=== PATIENT | female | born 1945 | race Caucasian/White ===

== ENCOUNTER 2024-07-23 10:24 | Outpatient (AMB) | payer OTHER, SELFPAY ==
--- NOTE | 2024-07-23 08:06 | A.OFFVIS_ITS ---
Vital Signs 07/23/24 10:34 Height 4 ft 0.75 in Weight 121 lb 6 oz BMI 35.9 BP 118/64 Blood Pressure Location Lt brachial Position Sitting Pulse 77 Pulse Source Pulse Oximeter Pulse Oximetry (%) 100 Oxygen Delivery Method Room Air Intake Visit Reasons: Joint Pain Intake Note: Patient presents for soft tissue pain in hands, knees and shoulders. Allergies cephalexin [From Keflex] Allergy (Unknown, Unverified 07/23/24 08:12) Unknown clonazepam [From Klonopin] Allergy (Unknown, Unverified 07/23/24 08:12) Unknown ampicillin [From Unasyn] Adverse Reaction (Unknown, Unverified 07/23/24 08:12) Unknown NSAIDS (Non-Steroidal Anti-Inflamma Adverse Reaction (Unknown, Unverified 07/23/24 10:37) Anaphylaxis sulbactam [From Unasyn] Adverse Reaction (Unknown, Unverified 07/23/24 08:12) Unknown HPI HPI Joint Pain: Details: In January 2024 she was unable to get out of bed. SHe had pain in shoulders, hands and was unable to bend knees. Sudden onset. She has a rash on her cheeks since onset of joint symptoms. It is worse at time. SHe continues to have stiffness in hands lasting all days. Hard to make a fist. He cannot open jars. Has a hard time getting up from seated position. She recieved prednisone 50mg qd for 5 days Jun [id number] from urgent care. She had immediate benefit with prednisone and continues to have benefit. She has pain in hips and has difficulty sleeping. Hard to rotate left wrist in the morning when she wakes up. Raynauds' syndrome affects her fingers with hands and feet with onset of Joint symptoms 01/2024. Denies fevers, pleurisy, dyspnea, oral ulers, weight loss, dysuria, hematuria, frothy urine. Hx of urianry incontinence and urinary urgency. Hx of anaphyalaxis from aleve. Avoids NSAIDs. NO benefit with tylenol. She seeked medical attention. Workup in March 2024 revealed elevated inflammatory markers and negative NOMAN. 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 Never smoked. Occasionally has alcohol a glass of wine a week. [facility] Family History (Updated 07/23/24 @ 08:15 by Rin Gomez CMA) Father COPD (chronic obstructive pulmonary disease) Asthma Mother COPD (chronic obstructive pulmonary disease) Stroke Rheumatoid arthritis Social History (Updated 07/23/24 @ 08:16 by Rin Gomez CMA) Comment: no more than 3 a week, but often does not drink Patient Tobacco Use Status: Never used Tobacco Review of Systems Const All systems reviewed & are unremarkable except as noted in HPI and below Physical Exam Vital Signs: Last Vital Signs Pulse 77 07/23/24 10:34 BP 118/64 07/23/24 10:34 Pulse Ox 100 07/23/24 10:34 Oxygen Delivery Method Room Air 07/23/24 10:34 BMI result Body Mass Index 35.9 Const Other: General: Comfortable CVS: RRR Respiratory: clear to auscultation bilaterally. Good respiratory effort Skin: Erythematous spots on cheeks. MSK: Synovitis bilateral 2nd and 3rd MCP with tenderness on palpation. She has synovitis of right 5th PIP without tenderness. Tender left 2nd to 4th PIPs. S light ulnar deviation of bilateral MCPs. [place]berden nodes present. Unable to weld technician hands. She has Dupuytren's contractures left hand. Shoulder abduction 120 degrees right and 110 left. Good internal external rotation of bilateral shoulders. External rotation of bilateral hips is limited due to pain. She has synovitis of bilateral knees. Knee flexion 110 degrees bilaterally. Right ankle mild synovitis present. Bilateral MTP tenderness. Assessment & Plan Assessment & Plan (1) Rheumatoid arthritis: Comment: Clinical history and exam is consistent with inflammatory arthritis with Raynaud's syndrome. She is at risk for development of RA with family history of RA (mother and sister). She presents as PMR mimic in 02/18/2024, which is an atypical presentation of RA and has developed synovitis affecting her hands and knees. We discussed diagnosis and management. She has history of osteoporosis on bone density that she had done in 2021 but reports that she was never offered treatment. I discussed treating initial symptoms with low-dose prednisone with plan to taper when she started on DMARD therapy. She has erythema on her cheeks presenting as erythematous spots. They do not represent typical malar rash. Code(s): M06.9 - Rheumatoid arthritis, unspecified Category: Medical Qualifiers: Rheumatoid arthritis location: multiple sites Rheumatoid factor presence: unspecified presence Qualified Code(s): M06.9 - Rheumatoid arthritis, unspecified Plan: Baseline labs and x-rays ordered Start prednisone 10 mg daily I recommend that she contact PCP to schedule bone density Return to clinic in 2 weeks to review results and next steps in management (2) Osteoporosis: Comment: Without fragility fracture. Treatment naive. Code(s): M81.0 - Age-related osteoporosis without current pathological fracture Category: Medical Qualifiers: Osteoporosis type: age-related Presence of current pathological fracture: without current pathological fracture Qualified Code(s): M81.0 - Age- related osteoporosis without current pathological fracture Plan: I recommend contacting PCP to schedule bone density (3) Raynaud disease without gangrene: Code(s): I73.00 - Raynaud's syndrome without gangrene Category: Medical Plan: Conservatively managed Orders: Orders Cyclic Citrullinated Peptide Today M06.9 - Rheumatoid arthritis, unspecified T Spot TB Today M06.9 - Rheumatoid arthritis, unspecified Creatinine Today M06.9 - Rheumatoid arthritis, unspecified Complete Blood Count Auto Diff Today M06.9 - Rheumatoid arthritis, unspecified Alanine Aminotransferase Today M06.9 - Rheumatoid arthritis, unspecified XR foot LT min 3V Today M06.9 - Rheumatoid arthritis, unspecified XR hand LT min 3V Today M06.9 - Rheumatoid arthritis, unspecified XR hand RT min 3V Today M06.9 - Rheumatoid arthritis, unspecified XR knee RT 2V Today M06.9 - Rheumatoid arthritis, unspecified Rheumatoid Factor Today M06.9 - Rheumatoid arthritis, unspecified Hepatitis B,C Profile Today M06.9 - Rheumatoid arthritis, unspecified Erythrocyte Sedimentation Rate Today M06.9 - Rheumatoid arthritis, unspecified C Reactive Protein Today M06.9 - Rheumatoid arthritis, unspecified Aspartate Amino Transferase Today M06.9 - Rheumatoid arthritis, unspecified XR foot RT min 3V Today M06.9 - Rheumatoid arthritis, unspecified XR knee LT 2V Today M06.9 - Rheumatoid arthritis, unspecified Vitamin D 25-OH Total Today M81.0 - Age-related osteoporosis without current pathological fracture Calcium Today M81.0 - Age-related osteoporosis without current pathological fracture Albumin Level Today M06.9 - Rheumatoid arthritis, unspecified, M81.0 - Age- related osteoporosis without current pathological fracture Medications: New prednisone 10 mg PO DAILY 30 tabs 0RF Coding Level of Care Code New Pt Level 4 (54956) Diagnoses Rheumatoid arthritis involving multiple sites, unspecified whether rheumatoid factor present M06.9 Rheumatoid arthritis location: multiple sites Rheumatoid factor presence: unspecified presence Age-related osteoporosis without current pathological fracture M81.0 Osteoporosis type: age-related Presence of current pathological fracture: without current pathological fracture Raynaud disease without gangrene I73.00
[2024-07-23 10:34] VITALS: BP 118/64; PULSE 77; O2SAT 100; BMI 35.9
== END 2024-07-23 11:58 | disposition home or self-care (01) ==
PROVIDERS: PCP Internal Medicine; Visit Provider Internal Medicine Rheumatology
DX: M06.9 Rheumatoid arthritis, unspecified (principal); M81.0 Age-related osteoporosis without current pathological fracture; I73.00 Raynaud's syndrome without gangrene
CPT/HCPCS: 99204

== ENCOUNTER 2024-07-23 10:24 | Outpatient (REF) | payer OTHER, SELFPAY ==
[2024-07-23 17:50] LABS: MANUAL DIFF FLAG NO
[2024-07-23 17:55] LABS: Basophils Absolute Auto 0.1 X10*3/uL (0.0-0.2); Eosinophils Absolute Auto 0.2 X10*3/uL (0.0-0.4); Eosinophils Percent Auto 3.7 % (0-4); Hematocrit 41.8 % (37.0-47.0); Hemoglobin 13.5 g/dl (12.0-16.0); Imm Gran Abs Auto 0.02 X10*3/uL (0.00-0.03); Imm Gran Pct Auto 0.3 % (0.0-0.4); Lymphocytes Absolute Auto 1.8 X10*3/uL (1.2-4.9); Lymphocytes Percent Auto 29.4 % (20-40); Mean Corpuscular HGB Conc 32.3 g/dl (31.0-35.0); Mean Corpuscular Hemoglobin 28.1 pg (27.0-33.0); Mean Corpuscular Volume 86.9 fL (80.0-98.0); Mean Platelet Volume 9.5 fL (9.4-12.3); Monocytes Absolute Auto 0.5 X10*3/uL (0.1-1.2); Monocytes Percent Auto 7.9 % (2-11); Neutrophils Absolute Auto 3.4 x10*3/uL (2.0-8.3); Neutrophils Percent Auto 57.7 % (45-73); Platelet Count 336 X10*3/uL (160-400); Red Blood Count 4.81 X10*6/uL (4.20-5.50)
[2024-07-23 18:06] LABS: Rheumatoid Factor < 13.0 IU/mL (<15.0)
[2024-07-23 18:15] LABS: Alanine Aminotransferase 15 U/L (0-31); Albumin Level 4.1 g/dL (3.5-5.0); Aspartate Amino Transferase 26 U/L (5-31); C Reactive Protein 0.69 mg/dL (< or = 0.50); Calcium 10.3 mg/dL (8.4-10.2); Estimated Glomerular Filt Rate > 60
[2024-07-23 18:31] LABS: Vitamin D 25-OH Total 64.7 ng/mL (>30)
[2024-07-23 18:39] LABS: Erythrocyte Sedimentation Rate 18 MM/HR (0-20)
[2024-07-24 08:12] LABS: HBS Num1 13.68 mIU/mL (0-7.99); HBc Num1 0.14 S/CO (0.00-0.79); HBsAGNum1 0.32 S/CO (0.00-0.99); Hepatitis B Core Antibody Nonreactive (Nonreactive); Hepatitis B Surface Antigen Negative (Negative); ~HepC Num1 0.18 S/CO (0.00-0.79); ~Hepatitis B Surface Antibody REACTIVE (Nonreactive); ~Hepatitis C Antibody Nonreactive (Nonreactive)
[2024-07-26 21:42] LABS: TS Negative Control Passed; TS Panel A 0; TS Panel B 0; TS Positive Control Passed; TSpotTB Negative (Negative)
[2024-07-27 14:39] LABS: Cyclic Citrullinated Peptide <16 UNITS
== END 2024-07-23 10:25 | disposition home or self-care (01) ==
LOC: HO.HKASLDS 10:24
PROVIDERS: PCP Internal Medicine; Visit Provider Internal Medicine Rheumatology
DX: M06.9 Rheumatoid arthritis, unspecified (principal); M81.0 Age-related osteoporosis without current pathological fracture
CPT/HCPCS: 36415; 82040; 82306; 82310; 82565; 84450; 84460; 85025; 85652; 86140; 86200; 86431; 86481; 86704; 86706; 86803; 87340

== ENCOUNTER 2024-07-27 12:57 | Outpatient (REF) | payer MEDICARE, SELFPAY ==
--- NOTE | ~2024-07-27 | XR_ITS ---
EXAMINATION: XR HAND 3 OR MORE VIEWS LEFT HISTORY: M06.9 - Rheumatoid arthritis, unspecified COMPARISON: There are no prior studies available for comparison. FINDINGS: Three views of the left hand are submitted. The bones are osteopenic. There is no fracture or dislocation. There is mild to moderate osteoarthritis of the 1st carpometacarpal joint with joint space narrowing and osteophyte formation. The remaining joint spaces are maintained. The soft tissues are unremarkable. XR/XR hand LT min 3V IMPRESSION: Osteopenia. Mild to moderate osteoarthritis of the 1st carpometacarpal joint. Electronically signed by: Mich Yap MD 07/27/2024 03:38 PM [facility]
--- NOTE | ~2024-07-27 | XR_ITS ---
EXAMINATION: XR HAND 3 OR MORE VIEWS RIGHT HISTORY: M06.9 - Rheumatoid arthritis, unspecified COMPARISON: There are no prior studies available for comparison. FINDINGS: Three views of the right hand are submitted. The bones are osteopenic. There is no fracture or dislocation. There is moderate osteoarthritis of the 1st carpometacarpal joint and the joint space between the scaphoid and trapezium. No erosions are seen. The soft tissues are unremarkable. XR/XR hand RT min 3V IMPRESSION: Osteopenia. Osteoarthritis of the radial aspect of the carpus as described. Electronically signed by: Mich Yap MD 07/27/2024 03:37 PM [facility]
--- NOTE | ~2024-07-27 | XR_ITS ---
EXAMINATION: XR FOOT 3 OR MORE VIEWS RIGHT HISTORY: M06.9 - Rheumatoid arthritis, unspecified COMPARISON: There are no prior studies available for comparison. FINDINGS: Three views of the right foot are submitted. The bones are osteopenic. There is no fracture or dislocation. There is mild narrowing and hallux valgus deformity of the MTP joint of the great toe. The soft tissues are unremarkable. XR/XR foot RT min 3V IMPRESSION: Osteopenia. Mild narrowing and hallux valgus deformity of the MTP joint of the great toe. Electronically signed by: Mich Yap MD 07/27/2024 03:40 PM [facility]
--- NOTE | ~2024-07-27 | XR_ITS ---
EXAMINATION: XR KNEE 1-2 VIEWS LEFT HISTORY: M06.9 - Rheumatoid arthritis, unspecified COMPARISON: There are no prior studies available for comparison. FINDINGS: AP and lateral views of the left knee are submitted. Osseous mineralization is normal. There is no fracture or dislocation. The joint spaces are preserved. The soft tissues are unremarkable. There is no joint effusion. XR/XR knee LT 2V IMPRESSION: Unremarkable examination of the left knee. Electronically signed by: Mich Yap MD 07/27/2024 03:38 PM [facility]
--- NOTE | ~2024-07-27 | XR_ITS ---
EXAMINATION: XR FOOT 3 OR MORE VIEWS LEFT HISTORY: M06.9 - Rheumatoid arthritis, unspecified COMPARISON: There are no prior studies available for comparison. FINDINGS: Three views of the left foot are submitted. The bones are osteopenic. There is no fracture or dislocation. The joint spaces are preserved. There is a small plantar calcaneal spur. The soft tissues are unremarkable. XR/XR foot LT min 3V IMPRESSION: Osteopenia. Small plantar calcaneal spur. Otherwise unremarkable examination of the left foot. Electronically signed by: Mich Yap MD 07/27/2024 03:40 PM EST
--- NOTE | ~2024-07-27 | XR_ITS ---
EXAMINATION: XR KNEE 1-2 VIEWS RIGHT HISTORY: M06.9 - Rheumatoid arthritis, unspecified COMPARISON: There are no prior studies available for comparison. FINDINGS: AP and lateral views of the right knee are submitted. Osseous mineralization is normal. There is no fracture or dislocation. The joint spaces are preserved. The soft tissues are unremarkable. There is no joint effusion. XR/XR knee RT 2V IMPRESSION: Unremarkable examination of the right knee. Electronically signed by: Mich Yap MD 07/27/2024 03:39 PM [facility]
--- OUTSIDE RECORDS SUMMARY | 2024-07-27 17:36 | XMS_ITS | Clinical Summary ---
Author Organization [facility] Address [address] [place] [address] Care Team Providers Care Safe And Vault Service Mechanic Name Role Phone Bassem Portillo MD Primary Care Provider [phone] Allergies Active Allergy Reactions Criticality Noted Date Comments Naproxen Anaphylaxis High 11/22/2021 Cephalexin Rash Low 11/22/2021 Clonazepam Hives 11/22/2021 Nsaids Anaphylaxis High 11/22/2021 Pneumococcal Vaccine Other (See Comments) 08/22 Carbamazepine Hives 11/22/2021 Ampicillin-Sulbactam Sodium Swelling 11/23/19 Medications Medication Sig Dispensed Refills Start Date End Date Status venlafaxine (EFFEXOR-XR) 75 MG 24 hr capsule Take 1 capsule (75 mg total) by mouth daily. 0 Active Cholecalciferol (Vitamin D) 25 MCG (1000 UT) TABS Take by mouth. 0 Active Calcium Carbonate-Vit D-Min (CALCIUM 1200 PO) Take by mouth. 0 Act claire vitamin B-12 (CYANOCOBALAMIN) 100 MCG tablet Take 0.5 tablets (50 mcg total) by mouth daily. 0 Active gabapentin (NEURONTIN) 100 MG capsule Take 1 capsule (100 mg total) by mouth every night at bedtime. 90 capsule 5 07/05/2023 Active simvastatin (ZOCOR) tablet 40 mg TAKE 1 TABLET AT BEDTIME 0 11/07/2023 Active valACYclovir (VALTREX) 1000 MG tablet Take 1 tablet (1,000 mg total) by mouth 2 (two) times a day. 14 tablet 1 02/25/2024 Active baclofen (LIORESAL) 10 MG tablet Take 1 tablet (10 mg total) by mouth 3 (three) times a day. 90 tablet 3 03/23/2024 Active Active Problems No known active problems Family History Medical History Relation Name Comments Asthma Father COPD Father Diabetes Mother Rheum arthritis Mother Stroke Mother Multiple sclerosis Nephew Relation Name Status Comments Father Mother Nephew Social History Tobacco Use Types Packs/Day Years Used Date Smoking Tobacco: Never Smokeless Tobacco: Never Tobacco Cessation:Counseling Given: Not Answered Alcohol Use Standard Drinks/Week Comments Yes 1 (1 standard drink = 0.6 oz pur e alcohol) Social Sex and Gender Information Value Date Recorded Sex Assigned at Female 10/11/2021 12:51 PM EDT Gender Identity Female 10/11/2021 12:51 PM EDT Sexual Orientation Not on file Job Start Date Occupation Industry Not on file Not on file Not on file Last Filed Vital Signs Vital Sign Reading Time Taken Comments Blood Pressure 131/79 02/25/2024 10:10 AM EDT Pulse 76 02/25/2024 10:10 AM EDT Temperature 36.1 ??C (97 ??F) 02/25/2024 10:10 AM EDT Respiratory Rate 16 04/29/2023 10:47 AM EDT Oxygen Saturation 97% 02/25/2024 10:10 AM EDT Inhaled Oxygen Concentration - - Weight 57.2 kg (126 lb) 02/25/2024 10:10 AM EDT Height 147.3 cm (4' 10 ) 02/25/2024 10:10 AM EDT Body Mass Index 26.33 02/25/2024 10:10 AM EDT Plan of Treatment Health Maintenance Due Date Last Done Comments Hepatitis C Screening 1945 Depression Screening 1959 Preventative Health Evaluation 12/27/1965 DTap / Tdap / Td (1 - Tdap) 12/27/1966 Shingrix-Zoster Vaccine (1 o f 2) 12/27/1997 Fall Risk Assessment 12/27/2012 Osteoporosis Screening (DEXA Scan) 12/27/2012 Pneumococcal Vaccine (1 of 1 - PCV) 12/27/2012 RSV Adult > 60+ Yrs or (1 - 1-dose 75+ series) 12/27/2022 COVID-19 Vaccine (2 - 2023-2 5 season) 2024 05/23/2021 Influenza Vaccine (#1) 2024 2, 05/24/2008, 06/11/2007 Hepatitis B Vaccines Aged Out No long er eligible based on patient's age to complete this topic RSV Ped < 20 months Aged Out No longe r eligible based on patient's age to complete this topic Care Teams Safe And Vault Service Mechanic Relationship Specialty Start Date End Date Bassem Portillo MD [address] [place] [address] PCP - General Internal Medicine 02/19/23
--- OUTSIDE RECORDS SUMMARY | 2024-07-27 17:36 | XMS_ITS | Clinical Summary ---
Author Organization [facility] Address [address] [place] [id number] Phone Care Team Providers Care Professor Of English Name Role Phone Bassem Portillo MD Primary Care Provider [phone] Allergies Active Allergy Reactions Criticality Noted Date Comments Ampicillin-Sulbactam Swelling 11/22/2021 Carbamazepine Hives 11/22/2021 Cephalexin Rash Low 11/22/2021 Clonazepam Hives 11/22/2021 Epinephrine 05/03/2023 Naproxen Anaphylaxis High 11/22/2021 Nsaids (Non-Steroidal Anti-I nflammatory Drug) Anaphylaxis High 11/22/2021 Pneumococcal Vaccine Unknown 08/22/2022 Medications Medication Sig Dispensed Refills Start Date End Date Status calcium carbonate-vitamin D3 1,000 mg-20 mcg (800 unit) tablet Take by mouth. Active cholecalciferol (VITAMIN D-3) 25 mcg (1,000 unit) tablet Take by mouth. A ctive cholecalciferol (VITAMIN D-3) 50 mcg (2,000 unit) tablet Take by mouth. A ctive cyanocobalamin (VITAMIN B-12) 100 mcg tablet Take 0.5 tablets (50 mcg total) by mouth. Active gabapentin (NEURONTIN) 100 mg capsule Take 1 capsule (100 mg total) by mouth at bedtime as needed. 07/05/2023 Active valACYclovir (VALTREX) 1 gram tablet Take 1 tablet (1,000 mg total) by mouth. 07/06/2022 Active venlafaxine XR (EFFEXOR-XR) 75 mg 24 hr capsule Take 1 capsule (75 mg total) by mouth 1 (one) time each day. 12/24/2022 Active simvastatin (ZOCOR) 40 mg tablet 1 tablet (40 mg total). TAKE 1 TABLET AT BEDTIME 11/07/2023 Active baclofen (LIORESAL) 10 mg tablet TAKE 1 TABLET THREE TIMES DAILY 270 tablet 3 06/08/2024 Active Active Problems Problem Noted Date Diagnosed Date Constipation 09/04/2023 Dysthymia 09/04/2023 Eczema 09/04/2023 Glucose intolerance 09/04/2023 Microscopic hematuria 09/04/2023 Vitamin D deficiency 09/04/2023 Cervical spondylosis 05/05/2023 Overview (09/04/2023): Last Assessment & Plan: Patient also describes neck pain radiating to the right trapezius and shoulder. She states she uses heat frequently which helps her pain. She notes some tenderness with range of motion of the right shoulder, reaching overhead. She does not note upper extremity weakness, dropping things. She had cervical MRI 03/12/2023 at [facility] that shows multilevel degenerative changes including C5-6 >C6-7 degenerative disc disease with some foraminal narrowing. Small foci T2 hyperintensity in the cord C3-4, C7-T1, demyelinating lesions. I reviewed MRI in detail with the patient on the computer. Dr. Morris reviewed her MRI today as well. Patient would like to try physical therapy, she may also have some right shoulder tendinitis in addition to her C5-6, C6-7 cervical degenerative disc disease. I asked her to follow-up after physical therapy to see if she notes improvement. All answered. Asked her to call with any additional questions or concerns. Lumbar radiculopathy 05/05/2023 Overview (09/04/2023): Last Assessment & Plan: Patient was diagnosed with MS in 1997, states her baseline symptoms are left >right leg weakness. Recently she has been noting and sensation of heat on the left lower leg, as though she has a heating pad on her leg. She has history of neuropathy in the lower extremities bilaterally. She describes years of progressive back pain. She notes spasms/pain in the mid back trying to get in and out of bed. Subjectively her legs feel weak with walking distances, denies any history of hip disease. 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 She had physical therapy years ago for MS related weakness. No recent PT, injections, acupuncture. She does use Tylenol for her pain, cannot take NSAIDs due to anaphylactic reaction in the past. At times her pain can get up to a 4-6/10. Patient had a lumbar spine MRI 03/12/2023 at [facility] that shows multilevel degenerative changes and left levoscoliosis centered at L2-3, including left L5-S1 foraminal narrowing. I reviewed MRI images in detail with the patient on the computer. Dr. Morris reviewed her images today as well. Ms. Jorge is experiencing recent heat in the left lower leg, Dr. Morris states this could represent some burning pain from the left L5-S1 foraminal narrowing, if patient does not see improvement with physical therapy, she may be able to try left L5-S1 TFE. We talked about trying acupuncture as well. Patient states her symptoms are not bad enough that she would consider any surgical intervention at this time, would like to try the physical therapy, prescription provided. 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 Encounters Date Type Department Care Team Description 05/18/2024 12:56 PM EST - 05/18/2024 11:59 PM EST Hospital Encounter Radiology Department - [address] [phone] Encounter for screening mammogram for breast cancer Discharge Disposition: Home or Self Care 05/06/2024 10:30 AM EST Office Visit [facility] - [address] [place] [address] Elsa Manley PA Multiple sclerosis (CMS/HCC) (Primary Dx) from Last 3 Months Immunizations Name Administration Dates Next Due Influenza trivalent, 0.5mL ( Fluzone High-dose) 65yo and older 03/14/2022 Influenza, Unspecified 03/11/2023,03/01/2022 Moderna SARS-CoV-2 COVID-19, mRNA, LNP-S, preservative free 09/09/2020,08/12/2020 Pfizer SARS-CoV-2 COVID-19, mRNA, LNP-S, preservative free 05/23/2021 Surgical History Surgery Date Site/Laterality Comments HYSTERECTOMY PROCEDURE:HYSTERECTOMY TUBAL LIGATION PROCEDURE:TUBAL LIGATION HYSTERECTOMY 2006 PROCEDURE: HISTORICAL HYSTERECTOMY; COMMENT: ARON with BSO CATARACT EXTRACTION 2019 PROCEDURE: HISTORICAL CATARACT REMOVAL BREAST BIOPSY PROCEDURE: BX BREAST; PERC NEEDLE CORE W/IMAG GUID Medical History Medical History Date Comments MS (multiple sclerosis) (CMS/HCC) DX:MS (multiple sclerosis) (HCC) Pure hypercholesterolemia DX:Pur e hypercholesterolemia Osteoporosis DX:Osteoporosis Cancer (CMS/HCC) DX:Cancer (HCC) Mixed hyperlipidemia DX:Mixed hy perlipidemia Multiple sclerosis (CMS/HCC) 1997 DX: Multiple sclerosis (HCC) Ovarian cancer ([facility]) DX:Ovar sana cancer ([facility]) Osteoporosis DX:Osteoporosis Family History Medical History Relation Name Comments No Known Problems Daughter x3 Asthma Father COPD Father COPD Mother Diabetes Mother Hyperlipidemia Mother Rheum arthritis Mother Stroke Mother Multiple sclerosis Nephew Asthma Sister Rheum arthritis Sister Relation Name Status Comments Brother Alive Daughter x3 Alive Father Mother Nephew Sister Social History Tobacco Use Types Packs/Day Years Used Date Smoking Tobacco: Never Smokeless Tobacco: Never Tobacco Cessation:Counseling Given: Not Answered Alcohol Use Standard Drinks/Week Comments Not Currently 1 (1 standard drink = 0.6 oz pur e alcohol) Sex and Gender Information Value Date Recorded Sex Assigned at Female 04/29/2024 2:39 PM EDT Gender Identity Female 04/29/2024 2:39 PM EDT Sexual Orientation Straight 04/29/2024 2: 39 PM EDT Job Start Date Occupation Industry Not on file Not on file Not on file Obstetrics History Para Term AB IAB SAB Ectopic Multiple Livin g Live Births 3 3 3 23 Date Outcome GA Total Labor Labor/2nd/3rd Weight Sex Type Anes PTL Lisette A1 A5 Name Clin Term Term Term Last Filed Vital Signs Vital Sign Reading Time Taken Comments Blood Pressure 133/77 05/06/2024 10:35 AM EST Pulse 74 05/06/2024 10:35 AM EST Temperature 36 ??C (96.8 ??F) 05/06/2024 10:35 AM EST Respiratory Rate - - Oxygen Saturation 99% 05/06/2024 10:35 AM EST Inhaled Oxygen Concentration - - Weight 54.7 kg (120 lb 8 oz) 03/20/2024 9:02 AM EDT Height 152.4 cm (5') 03/17/2024 9:52 AM EDT Body Mass Index 23.53 03/17/2024 9:52 AM EDT Plan of Treatment Upcoming Encounters Date Type Department Care Team (Late st Contact Info) Description 11/03/2024 10:00 AM EDT Office Visit [facility] [address] [place] [address] Elsa Manley PA [address] [facility] [place] [address] Health Maintenance Due Date Last Done Comments Pneumococcal Vaccine: 65+ Years (1 of 2 - PCV) [birth year]27/1951 DTaP,Tdap,and Td Vaccines (1 - Tdap) 12/27/1966 Zoster Vaccines (1 of 2) 12/27/1966 Depression Screening 06/10/2022 Falls Risk Assessment 06/10/2022 Hepatitis C Screening 06/10/2022 Medicare Annual Wellness Visit 06/10/2022 Social Influencers of Health Screening 06/10/2022 RSV Immunization Patients 60+ Years Old (1 - 1-dose 75+ series) 12/27/2022 COVID-19 Vaccine ( - season) 2024 05/23/2021, 09/09/2020, 08/12/2020 Influenza Vaccine (#1) 2024 3, 03/11/2023, 03/14/2022, Additional history exists Cholesterol Screening (Lipid Panel) 04/07/2029 04/07/2024 Osteoporosis Screening (Bone Density Screening) 05/02/2033 05/02/2023 Breast Cancer Screening Discontinued 05/18/2024, 05/09 HIB Vaccines Aged Out No longer eligi ble based on patient's age to complete this topic HPV Vaccines Aged Out No longer eligi ble based on patient's age to complete this topic Hepatitis A Vaccines Aged Out No long er eligible based on patient's age to complete this topic Hepatitis B Vaccines Aged Out No long er eligible based on patient's age to complete this topic IPV Vaccines Aged Out No longer eligi ble based on patient's age to complete this topic MMR Vaccines Aged Out No longer eligi ble based on patient's age to complete this topic Meningococcal ACWY Vaccine Aged Out N o longer eligible based on patient's age to complete this topic RSV Immunization Patients Under 20 months Aged Out No longer eligible based on patient's age to complete this topic Varicella Vaccines Aged Out No longer eligible based on patient's age to complete this topic Procedures Procedure Name Priority Date/Time Associated Diagnosis Comments EXTERNAL CLINICAL LAB 07/27/2024 EXTERNAL XRAY REPORT 07/27/2024 EXTERNAL CLINICAL LAB 07/24/2024 MG MAMMO DIGITAL SCREENING W WEI BILAT Routine 05/18/2024 1:09 PM EST Encounter for screening mammogram for breast cancer DXA BONE DENSITY STUDY 1+ SITS AXIAL SKEL Routine 05/02/2023 3:20 PM EDT Encounter for screening for osteoporosis from Last 3 Months or Most Recently Relevant to Health Maintenance Results * External Xray Report (07/27/2024) Anatomical Region Laterality Modality Radiographic Gloria ging Provider [facility] IMG XR PROCEDURE S * External clinical lab (07/27/2024) Only the most recent of2 resultswithin the time period is included. Provider [facility] LAB BLOOD ORDERA BLES * MG Mammo Digital Screening w Wei bilat (05/18/2024 1:09 PM EST) Anatomical Region Laterality Modality Breast Bilateral Mammography 05/19/2024 1:30 PM EST Impressions 05/19/2024 1:31 PM EST No mammographic evidence of malignancy. BREAST DENSITY: B - There are scattered areas of fibroglandular density. BI-RADS CATEGORY: 1 - NEGATIVE RECOMMENDATION: Screening bilateral mammogram is recommended in 1 year. MAMMO LOCATION: [facility], [address] [place] [address], [id number], . -------- FINAL REPORT -------- Dictated By: Janell Lee Dictated Date: 05/19/2024 13:30 ET Assigned Physician: Janell Lee Reviewed and Electronically Signed By: Janell Lee Signed Date: 05/19/2024 13:31 ET Workstation ID: [id number] Transcribed By: Self Edit Transcribed Date: 05/19/2024 13:30 ET Narrative 05/19/2024 1:31 PM EST EXAM: Screening Mammogram CLINICAL: 78 years old, Female, routine annual exam. COMPARISON: 05/09/2023 and as far back as 03/29/2020 ?? TECHNIQUE: Bilateral MLO and CC views were obtained digitally with 3-D mammogram (digital breast tomosynthesis). Computer-aided detection was utilized in evaluation of this exam (CAD). FINDINGS: No new suspicious mass, architectural distortion, or suspicious calcifications. Procedure Note Janell Lee MD - 05/19/2024 EXAM: Screening Mammogram CLINICAL: 78 years old, Female, routine annual exam. COMPARISON: 05/09/2023 and as far back as 03/29/2020 TECHNIQUE: Bilateral MLO and CC views were obtained digitally with 3-Dmammogram (digital breast tomosynthesis). Computer-aided detection wasutilized in evaluation of this exam (CAD). FINDINGS: No new suspicious mass, architectural distortion, or suspiciouscalcifications. IMPRESSION: No mammographic evidence of malignancy. BREAST DENSITY: B - There are scattered areas of fibroglandular density. BI-RADS CATEGORY: 1 - NEGATIVE RECOMMENDATION: Screening bilateral mammogram is recommended in 1 year. MAMMO LOCATION: [facility], [address] [place] [address], [phone], . -------- FINAL REPORT -------- Dictated By: Janell Lee Dictated Date: 05/19/2024 13:30 ET Assigned Physician: Janell Lee Reviewed and Electronically Signed By: Janell Lee Signed Date: 05/19/2024 13:31 ET Workstation ID: [id number] Transcribed By: Self Edit Transcribed Date: 05/19/2024 13:30 ET Bassem Portillo MD IMG BI PROCEDURES * DXA BONE DENSITY STUDY 1+ DIANA VILLEGAS (05/02/2023 3:20 PM EDT) Anatomical Region Laterality Modality Bone Densitometr y 12/19/2022 2:24 PM EDT Narrative 05/02/2023 5:53 PM EDT BONE DENSITY ? Lumbar Spine T-score is -2.0 ?? (SD relative to 20-29 y/o adult) Z-score is +0.4 ??(SD relative to age matched peers) This is consistent with osteopenia by criteria defined by the WHO. Left Hip T-score is -3.3 Z-score is -1.2 This is consistent with osteoporosis by criteria defined by the WHO. Impression: Based on the World Health Organization criteria, Eva Jorge should be classified as having osteoporosis. The [facility] Department of Internal Medicine recommends using National Osteoporosis Foundation (NOF) guidelines in treatment decisions related to osteoporosis. NOF guidelines suggest considering treatment for postmenopausal women and men aged 50 or older presenting with the following: History of hip or vertebral fracture. T-score less than or equal to -2.5 (DXA) at the femoral neck, total hip, or spine, after appropriate evaluation to exclude secondary causes. Low bone mass (T-score between -1.0 and -2.5 at the femoral neck or spine) AND a 10-year probability of a hip fracture greater than or equal to 3% OR a 10-year probability of a major osteoporosis-related fracture greater than or equal to 20% based on the [place]-adapted WHO algorithm Please note that all treatment decisions require clinical judgment and consideration of individual patient factors, including patient preferences, co-morbidities, previous drug use, risk factors not captured in the FRAX model (e.g., frailty, falls, vitamin D deficiency, increased bone turnover, interval significant decline in bone density) and possible under- or over-estimation of fracture risk by FRAX. Procedure Note Karely Melgoza MD - 08/06/2023 BONE DENSITY Lumbar Spine T-score is -2.0 (SD relative to 20-29 y/o adult) Z-score is +0.4 (SD relative to age matched peers) This is consistent with osteopenia by criteria defined by the WHO. Left Hip T-score is -3.3 Z-score is -1.2 This is consistent with osteoporosis by criteria defined by the WHO. Impression: Based on the World Health Organization criteria, Eva Jorge shouldbe classified as having osteoporosis. The [facility] Department of Internal Medicine recommendsusing National Osteoporosis Foundation (NOF) guidelines in treatmentdecisions related to osteoporosis. NOF guidelines suggest consideringtreatment for postmenopausal women and men aged 50 or older presentingwith the following: History of hip or vertebral fracture. T-score less than or equal to -2.5 (DXA) at the femoral neck, total hip,or spine, after appropriate evaluation to exclude secondary causes. Low bone mass (T-score between -1.0 and -2.5 at the femoral neck or spine)AND a 10-year probability of a hip fracture greater than or equal to 3% ORa 10-year probability of a major osteoporosis-related fracture greaterthan or equal to 20% based on the [place]-adapted WHO algorithm Please note that all treatment decisions require clinical judgment andconsideration of individual patient factors, including patientpreferences, co-morbidities, previous drug use, risk factors not capturedin the FRAX model (e.g., frailty, falls, vitamin D deficiency, increasedbone turnover, interval significant decline in bone density) and possibleunder- or over-estimation of fracture risk by FRAX. Bassem Portillo MD IMG DXA PROCEDURES from Last 3 Months or Most Recently Relevant to Health Maintenance Care Teams Professor Of English Relationship Specialty Start Date End Date Bassem Portillo MD PCP - General Internal Medicine 12/22/21
== END 2024-07-27 12:58 | disposition home or self-care (01) ==
LOC: HO.HMGCX 12:57
PROVIDERS: PCP Internal Medicine; Visit Provider Internal Medicine Rheumatology
DX: M06.9 Rheumatoid arthritis, unspecified (principal)
CPT/HCPCS: 73130; 73560; 73630

== ENCOUNTER → 2024-07-27 13:02 | Outpatient (BNV) | payer MEDICARE, SELFPAY | PROVIDERS: PCP Internal Medicine; Visit Provider Radiology Diagnostic Radiology | DX: M05.69 Rheumatoid arthritis of multiple sites with involvement of other organs and systems (principal) | CPT/HCPCS: 73130; 73560; 73630 ==

== ENCOUNTER 2024-08-13 08:19 | Outpatient (AMB) | payer MEDICARE, SELFPAY ==
[2024-08-13 08:30] VITALS: BP 114/68; PULSE 72; O2SAT 98; BMI 37.1
--- NOTE | 2024-08-13 08:30 | A.OFFVIS_ITS ---
Vital Signs 08/13/24 08:30 Height 4 ft 0.75 in Weight 125 lb 6 oz BMI 37.1 BP 114/68 Blood Pressure Location Lt brachial Position Sitting Pulse 72 Pulse Source Pulse Oximeter Pulse Oximetry (%) 98 Oxygen Delivery Method Room Air Intake Visit Reasons: Osteoporosis Intake Note: Patient presents for follow up. Allergies cephalexin [From Keflex] Allergy (Unknown, Verified 08/13/24 08:33) Unknown clonazepam [From Klonopin] Allergy (Unknown, Verified 08/13/24 08:33) Unknown ampicillin [From Unasyn] Adverse Reaction (Unknown, Verified 08/13/24 08:33) Unknown NSAIDS (Non-Steroidal Anti-Inflamma Adverse Reaction (Unknown, Verified 08/13/24 08:33) Anaphylaxis sulbactam [From Unasyn] Adverse Reaction (Unknown, Verified 08/13/24 08:33) Unknown HPI HPI Osteoporosis: Details: Morning stiffness 20 minutes. Decrease in pain in her joints. She is able to get up from seated position much better. PFSH Family History Father COPD (chronic obstructive pulmonary disease) Asthma Mother COPD (chronic obstructive pulmonary disease) Stroke Rheumatoid arthritis Social History Comment: no more than 3 a week, but often does not drink Patient Tobacco Use Status: Never used Tobacco Review of Systems Const All systems reviewed & are unremarkable except as noted in HPI and below Physical Exam Vital Signs: Last Vital Signs Pulse 72 08/13/24 08:30 BP 114/68 08/13/24 08:30 Pulse Ox 98 08/13/24 08:30 Oxygen Delivery Method Room Air 08/13/24 08:30 BMI result Body Mass Index 37.1 Const Other: General: Comfortable CVS: RRR Respiratory: clear to auscultation bilaterally. Good respiratory effort Skin: Erythematous spots on cheeks. MSK: Synovitis left 2nd and right 5th MCP with tenderness on palpation. Slight ulnar deviation of bilateral MCPs. [place]berden nodes present. 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 She has Dupuytren's contractures mild in bilateral hands. Shoulder abduction 120 degrees right and 110 left. Good internal external rotation of bilateral shoulders. External rotation of bilateral hips is limited due to pain. She has synovitis of bilateral knees. Knee flexion 110 degrees bilaterally. Left MTP tenderness. Assessment & Plan Assessment & Plan (1) Rheumatoid arthritis: Comment: Seronegative inflammatory arthritis with Raynaud's syndrome. She has had improvement in synovitis and stiffness on low-dose prednisone. We discussed diagnosis and management. She has history of ovarian cancer treated in 2006, in remission. Discussed side effects, benefits and drug monitoring on methotrexate. Code(s): M06.9 - Rheumatoid arthritis, unspecified Category: Medical Qualifiers: Rheumatoid arthritis location: multiple sites Rheumatoid factor prese nce: unspecified presence Qualified Code(s): M06.9 - Rheumatoid arthritis, unspecified Plan: Start methotrexate 12.5 mg once weekly Start folic acid 1 mg daily Continue prednisone 10 mg daily Lab requisition given to patient to have labs done locally near home in 1 month. She may call office with clinical update if she has further improvement. I will then consider decreasing prednisone to 7.5 mg daily Return to clinic in 2 months (2) Osteoporosis: Comment: Without fragility fracture. Treatment naive. Code(s): M81.0 - Age-related osteoporosis without current pathological fracture Category: Medical Qualifiers: Osteoporosis type: age-related Presence of current pathological fracture: without current pathological fracture Qualified Code(s): M81.0 - Age- related osteoporosis without current pathological fracture Plan: Bone density scheduled in August (3) Raynaud disease without gangrene: Comment: Conservatively managed Code(s): I73.00 - Raynaud's syndrome without gangrene Category: Medical Plan: Continue conservative management (4) Hypercalcemia: Comment: On labs. She has discontinued calcium supplement 1200 mg daily Code(s): E83.52 - Hypercalcemia Category: Medical Plan: She continues to take multivitamin, which contains calcium Information on calcium rich foods given to patient for knowledge that she may be receiving sufficient calcium from her diet I will repeat calcium level at a future follow-up visit Orders: Orders Alanine Aminotransferase 1 Month Z79.60 - intermediate accountant (current) use of unspecified immunomodulators and immunosuppressants Aspartate Amino Transferase 1 Month Z79.60 - intermediate accountant (current) use of unspecified immunomodulators and immunosuppressants Creatinine 1 Month Z79.60 - intermediate accountant (current) use of unspecified immunomodulators and immunosuppressants Complete Blood Count Auto Diff 1 Month Z79.60 - [facility] (current) use of unspecified immunomodulators and immunosuppressants Erythrocyte Sedimentation Rate 1 Month M06.9 - Rheumatoid arthritis, unspecified C Reactive Protein 1 Month M06.9 - Rheumatoid arthritis, unspecified Medications: New folic acid 1 mg PO DAILY 30 tabs 11RF methotrexate sodium 12.5 mg (5 x 2.5 mg) PO QWEEK 28 days 20 tabs 0RF Refilled prednisone 10 mg PO DAILY 30 tabs 1RF Coding Level of Care Code Est Pt Level 4 (66795) Complex EM visit Add On G2211 Diagnoses Rheumatoid arthritis involving multiple sites, unspecified whether rheumatoid factor present M06.9 Rheumatoid arthritis location: multiple sites Rheumatoid factor presence: unspecified presence Age-related osteoporosis without current pathological fracture M81.0 Osteoporosis type: age-related Presence of current pathological fracture: without current pathological fracture Raynaud disease without gangrene I73.00 Hypercalcemia E83.52
== END 2024-08-13 09:14 | disposition home or self-care (01) ==
PROVIDERS: PCP Internal Medicine; Visit Provider Internal Medicine Rheumatology
DX: M06.9 Rheumatoid arthritis, unspecified (principal); M81.0 Age-related osteoporosis without current pathological fracture; I73.00 Raynaud's syndrome without gangrene; E83.52 Hypercalcemia
CPT/HCPCS: 99214; G2211

== ENCOUNTER → 2024-08-13 08:19 | Outpatient (BNVA) | payer MEDICARE, SELFPAY | PROVIDERS: PCP Internal Medicine; Visit Provider Internal Medicine Rheumatology | DX: M81.0 Age-related osteoporosis without current pathological fracture (principal); M06.9 Rheumatoid arthritis, unspecified; I73.00 Raynaud's syndrome without gangrene; E83.52 Hypercalcemia | CPT/HCPCS: 99212 ==

== ENCOUNTER 2024-09-01 10:17 | Outpatient (REF) | payer MEDICARE, SELFPAY ==
--- NOTE | ~2024-09-01 | MM_ITS ---
EXAMINATION: DXA BONE DENSITY AXIAL HISTORY: Estrogen deficiency TECHNIQUE: BioMers Dual energy absorptiometry (DEXA) of the lumbar spine, total left hip, and femoral neck was performed. COMPARISON: There are no prior studies for comparison. FINDINGS: The bone mineral density of the lumbar spine is 0.903 with a T-score of -2.2, and a Z-score of -0.1. The bone mineral density of the left total hip is 0.628 with a T-score of -3.0, and a Z-score of -0.9. The bone mineral density of the left femoral neck is 0.631 with a T-score of -2.9, and a Z-score of -0.7. FRACTURE RISK: The FRAX index suggests a risk of major osteoporotic fracture of 41.0%, and of hip fracture 20.2%. MM/XR DEXA axial skeleton IMPRESSION: Based on bone mineral density, and according to World Health Organization (WHO) criteria, the diagnosis is consistent with osteoporosis. All bone density values are in grams per centimeter squared (g/cm2). Statistically, 68% of repeat scans fall within 1 SD (+/- 0.010 g/cm2 for AP spine L1-L4) and 1 SD (+/- 0.012 g/cm2 for femur total) FRAX is a trademark of the [employer]'s [place] for Metabolic Bone Disease, a World Health Organization (WHO) Collaborating Center. Electronically signed by: Mich Yap MD 09/04/2024 07:11 AM [facility]
--- OUTSIDE RECORDS SUMMARY | 2024-09-01 12:27 | XMS_ITS | Encounter Summary ---
Author Organization [facility] Address [address] [place] [address] Care Team Providers Care Motor Runner Name Role Phone Bassem Portillo MD Primary Care Provider [phone] Reason for Visit * Reason Onset Date Comments Leg Swelling 08/17/2024 Encounter Details Date Type Department Care Team (Late st Contact Info) Description 08/17/2024 Telephone [facility] [address] [place] [address] Bassem Portillo MD [address] [place] [address] Leg Swelling Social History Tobacco Use Types Packs/Day Years Used Date Smoking Tobacco: Never Smokeless Tobacco: Never Alcohol Use Standard Drinks/Week Comments Not Currently 1 (1 standard drink = 0.6 oz pur e alcohol) Comments No Sex and Gender Information Value Date Recorded Sex Assigned at Female 04/29/2024 2:39 PM EDT Legal Sex Female 2:56 PM EST Gender Identity Female 04/29/2024 2:39 PM EDT Sexual Orientation Straight 04/29/2024 2: 39 PM EDT documented as of this encounter Progress Notes * Lindsey Lundberg MA - 08/17/2024 3:47 PM EST Spoke to pt and informed pt if there is a concern for DVT she needs to be seen, she needs to go to urgent care * Bassem Portillo MD - 08/17/2024 1:55 PM EST If that is the concern then DVT needs to be ruled out and she needs to be seen in office or urgent care for evaluation. 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 Pt states nothing is different about her legs than normal. No pain/redness/swelling. She said she just wanted PCP to know. FYI * Aretha Smith - 08/17/2024 1:13 PM EST Patient call requires triage: Symptoms patient is presenting: Kelle from [facility] wanted to report pt's left lower leg extremity is slightly larger then the right lower extremity. How long has patient had these symptoms?: 2 days For ALL patients calling to schedule any appointment (routine, sick visit, follow up, consult, etc.) in the outpatient setting please ask the following questions: Do you have fever of higher than 101, sore throat with difficulty swallowing or severe shortness ofbreath? no If YES to any of these above symptoms, send a message to triage and do not book. Red dot. If no, an audio or video visit should be booked. Have you had close contact with someone with Coronavirus in the last 14 days? no Have you traveled abroad? no Have you traveled recently to another state outside of [place], [place], [place], [place], [place], [place], [place]? no o If yes, did you quarantine for 14 days or have a negative covid test? no If yes to any of the above, patient is not to be scheduled in office until after 14 day quarantine or negative covid test. If pain or injury related was it due to an accident at work or from a motor vehicle accident? If yes, date of accident/Injury: No If yes, gather 3rd alliance party insurance information Third Democrat Information: not applicable PCP: Bassem Portillo MD Payor: [employer] MEDICARE ADVANTAGE / Plan: [employer] CHOICE PPO / Product Type: *No Product type* / documented in this encounter Plan of Treatment Upcoming Encounters Date Type Department Care Team (Late st Contact Info) Description 11/03/2024 10:00 AM EDT Office Visit [facility] [place] [facility] [address] [place] [address] Elsa Manley, JOSH [address] [facility] [place] [address] documented as of this encounter Visit Diagnoses Not on filedocumented in this encounter Care Teams Motor Runner Relationship Specialty Start Date End Date Bassem Portillo MD PCP - General Internal Medicine 12/22/21 documented as of this encounter
--- OUTSIDE RECORDS SUMMARY | 2024-09-01 12:27 | XMS_ITS | Clinical Summary ---
Author Organization [facility] Address [address] [place] [address] Care Team Providers Care Folding Machine Feeder Name Role Phone Bassem Portillo MD Primary Care Provider [phone] Allergies Active Allergy Reactions Criticality Noted Date [...] age to complete this topic Care Teams Folding Machine Feeder Relationship Specialty Start Date End Date Bassem Portillo MD [address] [place] [address] PCP - General Internal Medicine 02/19/23
--- OUTSIDE RECORDS SUMMARY | 2024-09-01 12:27 | XMS_ITS | Clinical Summary ---
Author Organization [facility] Address [address] [place] [address] Phone Care Team Providers Care Advisory Intern Name Role Phone Bassem Portillo MD Primary Care Provider [phone] Allergies Active Allergy Reactions Criticality Noted Date Comments Ampicillin-Sulbactam Swelling 11/22/2021 Carbamazepine Hives 11/22/2021 Cephalexin Rash Low 11/22/2021 Clonazepam Hives 11/22/2021 Epinephrine 05/03/2023 Naproxen Anaphylaxis High 11/22/2021 Nsaids (Non-Steroidal Anti-I nflammatory Drug) Anaphylaxis High 11/22/2021 Pneumococcal Vaccine Unknown 08/22/2022 Medications baclofen (LIORESAL) 10 mg tablet Take 1 tablet (10 mg total) by mouth 3 (three) times a day. 270 tablet 5 Active calcium carbonate-vitam in D3 1,000 mg-20 mcg (800 unit) tablet Take 1 tablet by mouth 1 (one) time each day. 90 tablet 5 Active cholecalciferol (VITAMIN D-3) 25 mcg (1,000 unit) tablet Take 1 tablet (1,000 Units total) by mouth 1 (one) time each day. 90 tablet 5 Active cyanocobalamin (VITAMIN B-12) 100 mcg tablet Take 0.5 tablets (50 mcg total) by mouth 1 (one) time each day. 90 tablet 5 Active gabapentin (NEURONTIN) 100 mg capsule Take 1 capsule (100 mg total) by mouth at bedtime. 90 capsule 5 Active simvastatin (ZOCOR) 40 mg tablet Take 1 tablet (40 mg total) by mouth at bedtime. 90 tablet 5 Active valACYclovir (VALTREX) 1 gram tablet Take 1 tablet (1,000 mg total) by mouth 1 (one) time each day. 90 tablet 5 Active venlafaxine XR (EFFEXOR-XR) 75 mg 24 hr capsule Take 1 capsule (75 mg total) by mouth 1 (one) time each day. 90 capsule 5 Active calcium carbonate-vitam in D3 1,000 mg-20 mcg (800 unit) tablet Take by mouth. 08/17/19 25 Discontinu ed(Reorder ) cholecalciferol (VITAMIN D-3) 25 mcg (1,000 unit) tablet Take by mouth. 08/17/19 25 Discontinu ed(Reorder ) cholecalciferol (VITAMIN D-3) 50 mcg (2,000 unit) tablet Take by mouth. 08/17/19 25 Discontinu ed(Duplica te order) cyanocobalamin (VITAMIN B-12) 100 mcg tablet Take 0.5 tablets (50 mcg total) by mouth. 08/17/19 25 Discontinu ed(Reorder ) gabapentin (NEURONTIN) 100 mg capsule Take 1 capsule (100 mg total) by mouth at bedtime as needed. 4 08/17/19 25 Discontinu ed(Reorder ) valACYclovir (VALTREX) 1 gram tablet Take 1 tablet (1,000 mg total) by mouth. 3 08/17/19 25 Discontinu ed(Reorder ) venlafaxine XR (EFFEXOR-XR) 75 mg 24 hr capsule Take 1 capsule (75 mg total) by mouth 1 (one) time each day. 3 08/17/19 25 Discontinu ed(Reorder ) simvastatin (ZOCOR) 40 mg tablet 1 tablet (40 mg total). TAKE 1 TABLET AT BEDTIME 4 08/17/19 25 Discontinu ed(Reorder ) baclofen (LIORESAL) 10 mg tablet TAKE 1 TABLET THREE TIMES DAILY 270 tablet 3 4 08/17/19 25 Discontinu ed(Reorder ) Active Problems Problem Noted Date Diagnosed Date [...] things. 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 She had physical therapy years ago for MS related weakness. No recent PT, injections, acupuncture. She does use Tylenol for her pain, cannot take NSAIDs due to anaphylactic reaction in the past. At times her pain can get up to a 4-6/10. Patient had a lumbar spine MRI 03/12/2023 at [facility] that shows multilevel degenerative changes and left [...] Encounters Date Type Department Care Team Description 08/17/2024 Telephone Pediatrics - [facility] [address] [place] [address] Bassem Portillo MD Leg Swelling from Last 3 Months Immunizations Name Administration [...] 1997 DX: Multiple sclerosis (HCC) Ovarian cancer ([facility]) DX:Ovar sana cancer ([facility]) Osteoporosis DX:Osteoporosis Family History Medical [...] Orientation Straight 04/29/2024 2: 39 PM EDT Obstetrics History Para Term AB IAB SAB [...] Description 11/03/2024 10:00 AM EDT Office Visit [facility] [place] [facility] [address] [place] [address] Elsa Manley, JOSH [address] [place] [address] [place] [address] Health Maintenance Due Date Last Done Comments DTaP,Tdap,and Td Vaccines (1 - Tdap) 12/27/1966 Pneumococcal Vaccine: 50+ Years (1 of 2 - PCV) 12/27/1966 Zoster Vaccines (1 of 2) 12/27/1966 Depression Screening 06/10/2022 Falls Risk Assessment 06/10/2022 Hepatitis C Screening 06/10/2022 Medicare Annual Wellness Visit 06/10/2022 Social Influencers of Health Screening 06/10/2022 RSV Immunization Patients 60+ Years Old (1 - 1-dose 75+ series) 12/27/2022 COVID-19 Vaccine ( season) 2024 05/23/2021, 09/09/2020, 08/12/2020 Influenza Vaccine (#1) 2024 , 03/11/2023, 03/14/2022, Additional history exists Cholesterol Screening [...] patient's age to complete this topic Meningococcal B Vacine Aged Out No lo nger eligible based on patient's age to complete this topic RSV Immunization Patients Under 20 months Aged Out No longer eligible based on patient's age to complete this topic Varicella Vaccines Aged Out No longer eligible based on patient's age to complete this topic Procedures Procedure Name Priority Date/Time Associated Diagnosis Comments EXTERNAL CLINICAL LAB 07/28/2024 EXTERNAL XRAY REPORT 07/28/2024 EXTERNAL XRAY REPORT 07/28/2024 EXTERNAL XRAY REPORT 07/28/2024 EXTERNAL XRAY REPORT 07/28/2024 EXTERNAL XRAY REPORT 07/28/2024 EXTERNAL XRAY REPORT 07/28/2024 EXTERNAL XRAY REPORT 07/28/2024 EXTERNAL XRAY REPORT 07/28/2024 EXTERNAL XRAY REPORT 07/28/2024 EXTERNAL XRAY REPORT 07/28/2024 EXTERNAL CLINICAL LAB 07/27/2024 EXTERNAL XRAY REPORT 07/27/2024 EXTERNAL CLINICAL LAB 07/24/2024 MG MAMMO DIGITAL SCREENING W OMAR BILAT Routine 05/18/2024 1:09 PM EST Encounter for screening mammogram for breast cancer DXA BONE DENSITY STUDY 1+ SITS AXIAL SKEL Routine 05/02/2023 3:20 PM EDT Encounter for screening for osteoporosis from Last 3 Months or Most Recently Relevant to Health Maintenance Results * External Xray Report (07/28/2024) Only the most recent of11 resultswithin the time period is included. Anatomical Region Laterality Modality Radiographic Gloria ging us Provider [facility] IMG XR PROCEDURES Final Result * External clinical lab (07/28/2024) Only the most recent of3 resultswithin the time period is included. us Provider [facility] LAB BLOOD ORDERABLES Fin al Result * MG Mammo Digital Screening w Omar bilat (05/18/2024 1:09 PM EST) Anatomical Region Laterality Modality Breast Bilateral Mammography 05/19/2024 1:30 PM EST Impressions 05/19/2024 1:31 PM EST No mammographic evidence of malignancy. BREAST DENSITY: B - There are scattered areas of fibroglandular density. BI-RADS CATEGORY: 1 - NEGATIVE RECOMMENDATION: Screening bilateral mammogram is recommended in 1 year. MAMMO LOCATION: [facility], [address] [place] [address], [id number], . -------- FINAL REPORT -------- Dictated By: Janell Lee Dictated Date: 05/19/2024 13:30 ET Assigned Physician: Janell Lee Reviewed and Electronically Signed By: Janell Lee Signed Date: 05/19/2024 13:31 ET Workstation ID: [id number] Transcribed By: Self Edit Transcribed Date: 05/19/2024 [...] is recommended in 1 year. MAMMO LOCATION: [facility], [address] [place] [address], [id number], . -------- FINAL REPORT -------- Dictated By: Janell Lee Dictated Date: 05/19/2024 13:30 ET Assigned Physician: Janell Lee Reviewed and Electronically Signed By: Janell Lee Signed Date: 05/19/2024 13:31 ET Workstation ID: [id number] Transcribed By: Self Edit Transcribed Date: 05/19/2024 13:30 ET Bassem Portillo MD IMG BI PROCEDURES Final Result * DXA BONE DENSITY STUDY 1+ DIANA [...] should be classified as having osteoporosis. The [facility] Department of Internal Medicine recommends using National [...] on the World Health Organization criteria, Eva Marta Jorge shouldbe classified as having osteoporosis. The [facility] Department of Internal Medicine recommendsusing National Osteoporosis [...] fracture risk by FRAX. Bassem Portillo MD IM DXA PROCEDURES Final Result from Last 3 Months or Most Recently Relevant to Health Maintenance Insurance [facility] MEDICARE ADVANTAGE on file Care Teams Advisory Intern Relationship Specialty Start Date End Date Bassem Portillo MD PCP - General Internal Medicine 12/22/21
== END 2024-09-01 10:18 | disposition home or self-care (01) ==
LOC: HO.MAMMO 10:17
PROVIDERS: PCP Internal Medicine; Visit Provider Internal Medicine Rheumatology
DX: M81.0 Age-related osteoporosis without current pathological fracture (principal)
CPT/HCPCS: 77080

== ENCOUNTER → 2024-09-01 10:30 | Outpatient (BNV) | payer MEDICARE, SELFPAY | PROVIDERS: PCP Internal Medicine; Visit Provider Radiology Diagnostic Radiology | DX: E28.39 Other primary ovarian failure (principal) | CPT/HCPCS: 77080 ==

== ENCOUNTER 2024-10-21 09:33 | Outpatient (AMB) | payer MEDICARE, SELFPAY ==
--- NOTE | 2024-10-21 09:45 | MHC.OFFVIS ---
Vital Signs 10/21/24 09:46 Height 4 ft 10.5 in Weight 129 lb 3.054 oz BMI 26.5 BP 122/80 Blood Pressure Location Rt brachial Position Sitting Pulse 72 Pulse Source Pulse Oximeter Pulse Oximetry (%) 99 Oxygen Delivery Method Room Air Intake Visit Reasons: RTC 2 months Intake Note: Patient presents for an osteoporosis follow up. Accompanied by: Self / Same As Patient Allergies cephalexin [From Keflex] Allergy (Unknown, Verified 10/21/24 09:46) Unknown clonazepam [From Klonopin] Allergy (Unknown, Verified 10/21/24 09:46) Unknown ampicillin [From Unasyn] Adverse Reaction (Unknown, Verified 10/21/24 09:46) Unknown NSAIDS (Non-Steroidal Anti-Inflamma Adverse Reaction (Unknown, Verified 10/21/24 09:46) Anaphylaxis sulbactam [From Unasyn] Adverse Reaction (Unknown, Verified 10/21/24 09:46) Unknown HPI HPI RTC 2 months: Details: Morning stiffness is 30 minutes to an hour. She has weakness in her right leg. PFSH Family History Father COPD (chronic obstructive pulmonary disease) Asthma Mother COPD (chronic obstructive pulmonary disease) Stroke Rheumatoid arthritis Social History Comment: no more than 3 a week, but often does not drink Patient Tobacco Use Status: Never used Tobacco Physical Exam Vital Signs: Last Vital Signs Pulse 72 10/21/24 09:46 BP 122/80 10/21/24 09:46 Pulse Ox 99 10/21/24 09:46 Oxygen Delivery Method Room Air 10/21/24 09:46 BMI result Body Mass Index 26.5 Const Other: General: Comfortable CVS: RRR Respiratory: clear to auscultation bilaterally. Good respiratory effort Skin: Erythematous spots on cheeks. MSK: No synovitis of MCPs (resolved). Slight ulnar deviation of bilateral MCPs. Heberden nodes present. Able to acquisition advisor my hands. She has Dupuytren's contractures mild in bilateral hands. Normal range of motion of shoulders. External rotation of bilateral hips is limited due to pain. She has mild synovitis of right knee. Knee flexion 110 degrees bilaterally. No MTP tenderness. Office Procedures AMB Joint Injection/Aspiration Joint Injection/Aspiration Details: Right knee joint Prep: site was prepped using aseptic technique Injected: 40 mg of, Kenalog, with 1 mL of and 1% plain lidocaine Procedure: The patient tolerated the procedure well. Postprocedure protocol was discussed with patient. Coding 02557 - Large joint Procedure code (CPT) selection complete Office Meds lidocaine (PF) 10 mg/mL (1 %) injection solution Performing Provider: Enoch Stephens MD Performing Location: [facility] Administered by: Enoch Stephens MD on 10/21/24 15:36 Dose Route Admin Location Dispensed Lot Number Expiration Date [facility] [employer] 10 mg Infiltration 2 mL [id number] Kenalog 40 mg/mL suspension for injection Performing Provider: Enoch Stephens MD Performing Location: [facility] Administered by: Enoch Stephens MD on 10/21/24 15:36 Dose Route Admin Location Dispensed Lot Number Expiration Date [facility] [employer] 40 mg intra-articular 1 mL [id number] [facility] Assessment & Plan Assessment & Plan (1) Rheumatoid arthritis: Comment: Inflammatory arthritis has improved on low-dose prednisone. She recently started methotrexate without any side effects. She continues to have right knee synovitis contributing to weakness. I will treat right knee with intra-articular cortisone injection and optimize methotrexate dose. Rheumatology history: Seronegative inflammatory arthritis with Raynaud's syndrome. Responsive to low-dose prednisone 10 mg daily. MTX 08/2024- Code(s): M06.9 - Rheumatoid arthritis, unspecified Category: Medical Qualifiers: Rheumatoid arthritis location: multiple sites Rheumatoid factor presence: unspecified presence Qualified Code(s): M06.9 - Rheumatoid arthritis, unspecified Plan: Patient received right knee cortisone injection Increase methotrexate to 15 mg once weekly Continue folic acid 1 mg daily Decrease prednisone 2.5 mg every week until you are done She will have labs for drug monitoring on high-risk medication in 6-8 weeks. She will then receive refills of methotrexate until follow up appointment. After next appointment I will obtain labs for drug monitoring then prescribed 90 day supply of methotrexate. Return to clinic in 3 months (2) Osteoporosis: Comment: Without fragility fracture. Treatment naive. Bone density August 2024 reveals lowest T-score of left total hip-3.0, left femoral neck -2.9, lumbar spine -2.2. Code(s): M81.0 - Age-related osteoporosis without current pathological fracture Category: Medical Qualifiers: Osteoporosis type: age-related Presence of current pathological fracture: without current pathological fracture Qualified Code(s): M81.0 - Age-related osteoporosis without current pathological fracture Plan: I will address next visit (3) Raynaud disease without gangrene: Comment: Conservatively managed Code(s): I73.00 - Raynaud's syndrome without gangrene Category: Medical Plan: Continue conservative management (4) Hypercalcemia: Comment: On labs. She has discontinued calcium supplement 1200 mg daily Code(s): E83.52 - Hypercalcemia Category: Medical Plan: She continues to take multivitamin, which contains calcium Information on calcium rich foods given to patient for knowledge that she may be receiving sufficient calcium from her diet I will repeat calcium level at next visit Orders: Orders Aspartate Amino Transferase 1 Month Z79.60 - half-way (current) use of unspecified immunomodulators and immunosuppressants Complete Blood Count Auto Diff 1 Month Z79.60 - wearing apparel presser (current) use of unspecified immunomodulators and immunosuppressants AMB Joint Injection/Aspiration Today M06.9 - Rheumatoid arthritis, unspecified Alanine Aminotransferase 1 Month Z79.60 - half-way (current) use of unspecified immunomodulators and immunosuppressants Creatinine 1 Month Z79.60 - half-way (current) use of unspecified immunomodulators and immunosuppressants Medications: New prednisone Take 3 tablets daily 1 week, 2 tablets daily 1 week, 1 tablet daily 1 week then stop. Take prednisone with food. 2.5 mg PO DIRECTED 42 tabs 0RF lidocaine (PF) 10 mg Infiltration ONCE 1 mL 0RF M06.9 - Rheumatoid arthritis, unspecified Kenalog (triamcinolone acetonide) 40 mg intra-articular ONCE 1 mL 0RF NS M06.9 - Rheumatoid arthritis, unspecified Changed From methotrexate sodium 12.5 mg (5 x 2.5 mg) PO QWEEK 28 days 20 tabs 2RF To methotrexate sodium Increase dose 15 mg (6 x 2.5 mg) PO QWEEK 8 weeks 48 tabs 0RF Discontinued prednisone Discontinued Reason: Doctor's Order 10 mg PO DAILY 30 tabs 1RF Coding Level of Care Code Est Pt Level 4 (15289) Complex EM visit Add On G2211 Diagnoses Rheumatoid arthritis involving multiple sites, unspecified whether rheumatoid factor present M06.9 Rheumatoid arthritis location: multiple sites Rheumatoid factor presence: unspecified presence Age-related osteoporosis without current pathological fracture M81.0 Osteoporosis type: age-related Presence of current pathological fracture: without current pathological fracture Raynaud disease without gangrene I73.00 Hypercalcemia E83.52 CPT Codes Coding - 85297 Large joint: 41711 - Large joint ([id number])
[2024-10-21 09:46] VITALS: BP 122/80; PULSE 72; O2SAT 99; BMI 26.5
--- OUTSIDE RECORDS SUMMARY | 2024-10-21 10:40 | XMS_ITS | Clinical Summary ---
Author Organization [facility] Address [address] [place] [address] Care Team Providers Care Licensed Marine Engineer Name Role Phone Bassem Portillo MD Primary Care Provider [phone] Allergies Active Allergy Reactions Criticality Noted Date [...] age to complete this topic Care Teams Licensed Marine Engineer Relationship Specialty Start Date End Date Bassem Portillo MD [address] [place] [address] PCP - General Internal Medicine 02/19/23
--- OUTSIDE RECORDS SUMMARY | 2024-10-21 10:40 | XMS_ITS | Clinical Summary ---
Author Organization [facility] Address [address] [place] [phone] Phone Care Team Providers Care Shotweld Operator Name Role Phone Bassem Portillo MD Primary Care Provider [phone] Allergies Active Allergy Reactions Criticality Noted Date Comments Ampicillin-Sulbactam Swelling 11/22/2021 Carbamazepine Hives 11/22/2021 Cephalexin Rash Low 11/22/2021 Clonazepam Hives 11/22/2021 Epinephrine 05/03/2023 Naproxen Anaphylaxis High 11/22/2021 Nsaids (Non-Steroidal Anti-I nflammatory Drug) Anaphylaxis High 11/22/2021 Pneumococcal Vaccine Unknown 08/22/2022 Medications baclofen (LIORESAL) 10 mg tablet Take 1 tablet (10 mg total) by mouth 3 (three) times a day. 270 tablet 08/17/2024 Active calcium carbonate-vitam in D3 1,000 mg-20 mcg (800 unit) tablet Take 1 tablet by mouth 1 (one) time each day. 90 tablet 08/17/2024 Active cholecalciferol (VITAMIN D-3) 25 mcg (1,000 unit) tablet Take 1 tablet (1,000 Units total) by mouth 1 (one) time each day. 90 tablet 08/17/2024 Active cyanocobalamin (VITAMIN B-12) 100 mcg tablet Take 0.5 tablets (50 mcg total) by mouth 1 (one) time each day. 90 tablet 08/17/2024 Active gabapentin (NEURONTIN) 100 mg capsule Take 1 capsule (100 mg total) by mouth at bedtime. 90 capsule 08/17/2024 Active simvastatin (ZOCOR) 40 mg tablet Take 1 tablet (40 mg total) by mouth at bedtime. 90 tablet 08/17/2024 Active valACYclovir (VALTREX) 1 gram tablet Take 1 tablet (1,000 mg total) by mouth 1 (one) time each day. 90 tablet 08/17/2024 Active venlafaxine XR (EFFEXOR-XR) 75 mg 24 hr capsule Take 1 capsule (75 mg total) by mouth 1 (one) time each day. 90 capsule 08/17/2024 Active Active Problems Problem Noted Date Diagnosed [...] things. 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 She had physical therapy years ago for MS related weakness. No recent PT, injections, acupuncture. She does use Tylenol for her pain, cannot take NSAIDs due to anaphylactic reaction in the past. At times her pain can get up to a 4-6/10. Patient had a lumbar spine MRI 03/12/2023 at [facility] that shows multilevel degenerative changes and left [...] therapy, prescription provided. 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 Encounters Date Type Department Care Team Description 08/17/2024 Telephone Pediatrics - [facility] [address] [place] [address] Bassem Portillo MD Leg Swelling [...] Medical History Date Comments MS (multiple sclerosis) ([facility] V24, [facility] V28) DX:MS (multiple sclerosis) ( HCC) Pure hypercholesterolemia DX:Pur e hypercholesterolemia Osteoporosis DX:Osteoporosis Cancer ([facility] V24, [facility] V28) DX:Cancer (HCC) Mixed hyperlipidemia DX:Mixed hy perlipidemia Multiple sclerosis ([facility] V24, [facility] V28) 19 98 DX:Multiple sclerosis (HCC) Ovarian cancer ([facility] V24, [facility] V28) DX:Ovarian cancer (HCC) Osteoporosis DX:Osteoporosis Family History Medical History Relation [...] Description 11/03/2024 10:00 AM EDT Office Visit [facility] [address] [place] [address] Elsa aMnley PA [address] [place] [address] Health Maintenance Due Date Last Done Comments DTaP,Tdap,and Td Vaccines (1 - Tdap) 12/27/1966 Pneumococcal Vaccine: 50+ Years (1 of 2 - PCV) 12/27/1966 Zoster Vaccines (1 of 2) 12/27/1966 Depression Screening 06/10/2022 Falls Risk Assessment 06/10/2022 Hepatitis C Screening 06/10/2022 Medicare Annual Wellness Visit 06/10/2022 Social Influencers of Health Screening 06/10/2022 RSV Immunization Adult Patients (1 - 1-dose 75+ series) 12/27/2022 COVID-19 Vaccine ( - season) 2024 05/23/2021, 09/09/2020, 08/12/2020 Influenza Vaccine (Season Ended) 2025 03/22/2023, 03/11/2023, 03/14/2022, Additional history exists Cholesterol Screening (Lipid Panel) 04/07/2029 04/07/2024 Osteoporosis Screening (Bone Density Screening) 05/02/2033 05/02/2023 Breast Cancer Screening Discontinued 09/05/19, 05/18/2024, 05/09/2023 HIB Vaccines Aged Out No longer eligi [...] age to complete this topic Meningococcal B Vaccine Aged Out No l onger eligible based on patient's age to complete this topic RSV Immunization Patients Under 20 months Aged Out No longer eligible based on patient's age to complete this topic Varicella Vaccines Aged Out No longer eligible based on patient's age to complete this topic Procedures Procedure Name Priority Date/Time Associated Diagnosis Comments EXTERNAL MAMMOGRAM REPORT 09/04/2024 EXTERNAL CLINICAL LAB 07/28/2024 EXTERNAL XRAY REPORT 07/28/2024 EXTERNAL XRAY REPORT 07/28/2024 EXTERNAL XRAY REPORT 07/28/2024 EXTERNAL XRAY REPORT 07/28/2024 EXTERNAL XRAY REPORT 07/28/2024 EXTERNAL XRAY REPORT 07/28/2024 EXTERNAL XRAY REPORT 07/28/2024 EXTERNAL XRAY REPORT 07/28/2024 EXTERNAL XRAY REPORT 07/28/2024 EXTERNAL XRAY REPORT 07/28/2024 EXTERNAL CLINICAL LAB 07/27/2024 EXTERNAL XRAY REPORT 07/27/2024 EXTERNAL CLINICAL LAB 07/24/2024 DXA BONE DENSITY STUDY 1+ SITS AXIAL SKEL Routine 05/02/2023 3:20 PM EDT Encounter for screening for osteoporosis from Last 3 Months or Most Recently Relevant to Health Maintenance Results * External Mammogram Report (09/04/2024) Anatomical Region Laterality Modality Mammography us Provider [facility] BI PROCEDURES Final Result * External Xray Report (07/28/2024) Only the most recent of11 resultswithin the time period is included. Anatomical Region Laterality Modality Radiographic Gloria ging us Provider [facility] XR PROCEDURES Final Result * External clinical lab (07/28/2024) Only the most recent of3 resultswithin the time period is included. us Provider [facility] LAB BLOOD ORDERABLES Fin al Result * DXA BONE DENSITY STUDY 1+ [...] should be classified as having osteoporosis. The [facility] Department of Internal Medicine recommends using National [...] Jorge shouldbe classified as having osteoporosis. The [facility] Department of Internal Medicine recommendsusing National Osteoporosis [...] fracture risk by FRAX. Bassem Portillo MD [facility] DXA PROCEDURES Final Result from Last 3 Months or Most Recently Relevant to Health Maintenance Insurance [facility] MEDICARE ADVANTAGE on file Care Teams Shotweld Operator Relationship Specialty Start Date End Date Bassem Portillo MD PCP - General Internal Medicine 12/22/21
== END 2024-10-21 10:40 | disposition home or self-care (01) ==
LOC: HO.RHES 09:33
PROVIDERS: PCP Internal Medicine; Visit Provider Internal Medicine Rheumatology
DX: M06.09 Rheumatoid arthritis without rheumatoid factor, multiple sites (principal); M81.0 Age-related osteoporosis without current pathological fracture; I73.00 Raynaud's syndrome without gangrene; E83.52 Hypercalcemia; M25.561 Pain in right knee
CPT/HCPCS: 20610; 99214

== ENCOUNTER → 2024-10-21 09:33 | Outpatient (BNVA) | payer MEDICARE, SELFPAY | PROVIDERS: PCP Internal Medicine; Visit Provider Internal Medicine Rheumatology | DX: M81.0 Age-related osteoporosis without current pathological fracture (principal); I73.00 Raynaud's syndrome without gangrene; E83.52 Hypercalcemia; M06.9 Rheumatoid arthritis, unspecified; Z79.60 Long term (current) use of unspecified immunomodulators and immunosuppressants | CPT/HCPCS: 20610; 99212; J2003; J3300 ==

== ENCOUNTER 2024-12-17 09:22 | Outpatient (REF) | payer MEDICARE, SELFPAY ==
--- OUTSIDE RECORDS SUMMARY | 2024-12-17 10:03 | XMS_ITS | Clinical Summary ---
Author Organization [facility] Address [address] [place] [phone] Phone Care Team Providers Care Family Resource Coordinator Name Role Phone Bassem Portillo MD Primary Care Provider [phone] Allergies Active Allergy Reactions Criticality Noted Date Comments Ampicillin-Sulbactam Swelling 11/22/2021 Carbamazepine Hives 11/22/2021 Cephalexin Rash Low 11/22/2021 Clonazepam Hives 11/22/2021 Epinephrine 05/03/2023 Naproxen Anaphylaxis High 11/22/2021 Nsaids (Non-Steroidal Anti-I nflammatory Drug) Anaphylaxis High 11/22/2021 Pneumococcal Vaccine Unknown 08/22/2022 Medications cholecalciferol (VITAMIN D-3) 25 mcg (1,000 unit) tablet Take 1 tablet (1,000 Units total) by mouth 1 (one) time each day. 90 tablet 5 Active cyanocobalamin (VITAMIN B-12) 100 mcg tablet Take 0.5 tablets (50 mcg total) by mouth 1 (one) time each day. 90 tablet 5 Active simvastatin (ZOCOR) 40 mg tablet [...] time each day. 90 capsule 5 Active methotrexate 2.5 mg tablet Take 1 tablet (2.5 mg total) by mouth 1 (one) time per week 6 Tablets once a week 5 Active predniSONE (DELTASONE) 10 mg tablet Take 0.5 tablets (5 mg total) by mouth 1 (one) time each day. 4 Active folic acid (FOLVITE) 800 mcg tablet Take 1 tablet (800 mcg total) by mouth 1 (one) time each day. Active baclofen (LIORESAL) 10 mg tablet Take 1 tablet (10 mg total) by mouth 3 (three) times a day. 270 tablet 5 Active gabapentin (NEURONTIN) 100 mg capsule Take 1 capsule (100 mg total) by mouth at bedtime. 90 capsule 5 Active baclofen (LIORESAL) 10 mg tablet Take 1 tablet (10 mg total) by mouth 3 (three) times a day. 270 tablet 5 12/16/19 25 Discontinu ed(Reorder ) gabapentin (NEURONTIN) 100 mg capsule Take 1 capsule (100 mg total) by mouth at bedtime. 90 capsule 5 12/16/19 25 Discontinu ed(Reorder ) Active Problems Problem [...] things. 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 She had physical therapy years ago for MS related weakness. No recent PT, injections, acupuncture. She does use Tylenol for her pain, cannot take NSAIDs due to anaphylactic reaction in the past. At times her pain can get up to a 4-6/10. Patient had a lumbar spine MRI 03/12/2023 at [facility] that shows multilevel degenerative changes [...] therapy, prescription provided. 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 Encounters Date Type Department Care Team Description 11/03/2024 10:00 AM EDT Office Visit [facility] [place] [address] [place] [address] Elsa Manley PA Multiple sclerosis ([facility] V24, [facility] V28) (Primary Dx) from Last 3 Months Immunizations [...] Medical History Date Comments MS (multiple sclerosis) ([facility] V24, [facility] V28) DX:MS (multiple sclerosis) ( HCC) Pure hypercholesterolemia DX:Pur e hypercholesterolemia Osteoporosis DX:Osteoporosis Cancer ([facility] V24, [facility] V28) DX:Cancer (HCC) Mixed hyperlipidemia DX:Mixed hy perlipidemia Multiple sclerosis ([facility] V24, [facility] V28) 19 98 DX:Multiple sclerosis (HCC) Ovarian cancer ([facility] V24, [facility] V28) DX:Ovarian cancer (HCC) Osteoporosis DX:Osteoporosis Family [...] Sign Reading Time Taken Comments Blood Pressure 133/80 11/03/2024 9:44 AM EDT Pulse 73 11/03/2024 9:44 AM EDT Temperature 36 C (96.8 F) 05/06/2024 10:35 AM EST Respiratory Rate - - Oxygen Saturation 98% 11/03/2024 9:44 AM EDT Inhaled Oxygen Concentration - - Weight 57.2 kg (126 lb) 11/03/2024 9:44 AM EDT Height 149.9 cm (4' 11 ) 11/03/2024 9:44 AM EDT Body Mass Index 25.45 11/03/2024 9:44 AM EDT Plan of Treatment Upcoming Encounters Date Type Department Care Team (Late st Contact Info) Description 01/18/2025 9:45 AM EDT [facility] [address] [place], [place] [phone] Fidel Bryan PA [address] [place] [address] 11/02/2025 1:00 PM EDT Office Visit [facility] [address] [facility] [address] [place] [phone] Raymundo Tabor MD [address] [place] [address] Health Maintenance Due Date Last Done Comments [...] Associated Diagnosis Comments EXTERNAL MAMMOGRAM REPORT 09/04/2024 DXA BONE DENSITY STUDY 1+ SITS AXIAL SKEL Routine 05/02/2023 3:20 PM EDT Encounter for screening for osteoporosis from Last 3 Months or Most Recently Relevant to Health Maintenance Results * External Mammogram Report (09/04/2024) Anatomical Region Laterality Modality Mammography us Provider [facility] BI PROCEDURES Final Result * DXA BONE DENSITY STUDY 1+ DIANA VILLEGAS (05/02/2023 3:20 PM EDT) Anatomical Region Laterality Modality Bone Densitometr y 12/19/2022 2:24 PM EDT Narrative 05/02/2023 5:53 PM EDT BONE DENSITY Lumbar Spine T-score is -2.0 [...] should be classified as having osteoporosis. The [facility] Department of Internal Medicine recommends using [...] Jorge shouldbe classified as having osteoporosis. The [facility] Department of Internal Medicine recommendsusing National [...] fracture risk by FRAX. Bassem Portillo MD [facility] DXA PROCEDURES Final Result from Last 3 Months or Most Recently Relevant to Health Maintenance Insurance [employer] MEDICARE ADVANTAGE Care Teams Family Resource Coordinator Relationship Specialty Start Date End Date Bassem Potrillo MD [address] [place] [address] PCP - General Internal Medicine 10/30/24
[2024-12-17 17:26] LABS: MANUAL DIFF FLAG NO
[2024-12-17 17:50] LABS: Basophils Absolute Auto 0.1 X10*3/uL (0.0-0.2); Eosinophils Absolute Auto 0.2 X10*3/uL (0.0-0.4); Eosinophils Percent Auto 3.1 % (0-4); Hematocrit 39.7 % (37.0-47.0); Hemoglobin 12.7 g/dl (12.0-16.0); Imm Gran Abs Auto 0.02 X10*3/uL (0.00-0.03); Imm Gran Pct Auto 0.4 % (0.0-0.4); Lymphocytes Percent Auto 20.9 % (20-40); Mean Corpuscular Hemoglobin 30.2 pg (27.0-33.0); Mean Corpuscular Volume 94.3 fL (80.0-98.0); Mean Platelet Volume 9.5 fL (9.4-12.3); Monocytes Absolute Auto 0.5 X10*3/uL (0.1-1.2); Monocytes Percent Auto 9.8 % (2-11); Neutrophils Absolute Auto 3.2 x10*3/uL (2.0-8.3); Neutrophils Percent Auto 64.8 % (45-73); Platelet Count 334 X10*3/uL (160-400); Red Blood Count 4.21 X10*6/uL (4.20-5.50); Red Cell Distribution Width 14.5 % (11.0-16.0); White Blood Count 4.9 X10*3/uL (4.8-10.8)
[2024-12-17 18:04] LABS: Alanine Aminotransferase 19 U/L (0-31); Aspartate Amino Transferase 35 U/L (5-31); C Reactive Protein 0.36 mg/dL (< or = 0.50); Estimated Glomerular Filt Rate > 60
[2024-12-17 18:30] LABS: Erythrocyte Sedimentation Rate 20 MM/HR (0-20)
== END 2024-12-17 09:23 | disposition home or self-care (01) ==
LOC: HO.HKASLDS 09:22
PROVIDERS: Visit Provider Internal Medicine Rheumatology
DX: M06.9 Rheumatoid arthritis, unspecified (principal); Z79.60 Long term (current) use of unspecified immunomodulators and immunosuppressants
CPT/HCPCS: 36415; 82565; 84450; 84460; 85025; 85652; 86140

== ENCOUNTER 2025-01-27 14:27 | Outpatient (REF) | payer MEDICARE, SELFPAY ==
[2025-01-27 17:53] LABS: MANUAL DIFF FLAG NO
[2025-01-27 18:08] LABS: Hematocrit 40.9 % (37.0-47.0); Hemoglobin 13.2 g/dl (12.0-16.0); Imm Gran Abs Auto 0.02 X10*3/uL (0.00-0.03); Imm Gran Pct Auto 0.3 % (0.0-0.4); Lymphocytes Absolute Auto 1.8 X10*3/uL (1.2-4.9); Mean Corpuscular HGB Conc 32.3 g/dl (31.0-35.0); Mean Corpuscular Hemoglobin 29.9 pg (27.0-33.0); Mean Corpuscular Volume 92.5 fL (80.0-98.0); NRBC Abs Auto 0.000 X10*3/uL (0.0-0.012); NRBC Pct Auto 0.0 /100WBC (0.0-0.2); Platelet Count 314 X10*3/uL (160-400); Red Blood Count 4.42 X10*6/uL (4.20-5.50); White Blood Count 6.5 X10*3/uL (4.8-10.8)
[2025-01-27 18:34] LABS: Alanine Aminotransferase 17 U/L (0-31); Albumin Level 4.2 g/dL (3.5-5.0); Alkaline Phosphatase 60 U/L (39-117); Aspartate Amino Transferase 34 U/L (5-31); Estimated Glomerular Filt Rate > 60; Total Protein 6.6 g/dL (6.5-8.0)
== END 2025-01-27 14:28 | disposition home or self-care (01) ==
LOC: HO.HKASLDS 14:27
PROVIDERS: PCP Internal Medicine; Visit Provider Internal Medicine Rheumatology
DX: M06.9 Rheumatoid arthritis, unspecified (principal); M81.0 Age-related osteoporosis without current pathological fracture; I73.00 Raynaud's syndrome without gangrene; E83.52 Hypercalcemia; Z79.60 Long term (current) use of unspecified immunomodulators and immunosuppressants; Z79.52 Long term (current) use of systemic steroids
CPT/HCPCS: 20610; 36415; 80076; 82565; 85025; 99212; J2003; J3300

== ENCOUNTER 2025-01-27 14:27 | Outpatient (AMB) | payer MEDICARE, SELFPAY ==
--- NOTE | 2025-01-27 14:31 | MHC.OFFVIS ---
Vital Signs 01/27/25 14:42 Height 4 ft 10.5 in Weight 129 lb 2 oz BMI 26.5 BP 108/60 Blood Pressure Location Rt brachial Position Sitting Pulse 72 Pulse Source Pulse Oximeter Pulse Oximetry (%) 98 Oxygen Delivery Method Room Air Intake Visit Reasons: 3 Months Intake Note: Patient presents for an osteoporosis follow up. Allergies cephalexin (From Keflex) Allergy (Unknown, Verified 01/27/25 14:44) Unknown clonazepam (From Klonopin) Allergy (Unknown, Verified 01/27/25 14:44) Unknown ampicillin (From Unasyn) Adverse Reaction (Unknown, Verified 01/27/25 14:44) Unknown NSAIDS (Non-Steroidal Anti-Inflamma Adverse Reaction (Unknown, Verified 01/27/25 14:44) Anaphylaxis sulbactam (From Unasyn) Adverse Reaction (Unknown, Verified 01/27/25 14:44) Unknown HPI HPI 3 Months: Details: She has been on MTX 12.5mg once weekly. She did not increase dose to 15 mg once weekly because she was unable to receive prescription from pharmacy. She has relief in nausea with leucovorin. She is off of prednisone. She gained weight with being on prednisone. Bilateral knee tightness. Hard to kneel at muslim. MS minutes. Takes tylenol PRN pain. 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 No recent infections. She has history of fatty liver in the past. PFSH Family History Father COPD (chronic obstructive pulmonary disease) Asthma Mother COPD (chronic obstructive pulmonary disease) Stroke Rheumatoid arthritis Social History Comment: no more than 3 a week, but often does not drink Patient Tobacco Use Status: Never used Tobacco Physical Exam Vital Signs: Last Vital Signs Pulse 72 01/27/25 14:42 BP 108/60 01/27/25 14:42 Pulse Ox 98 01/27/25 14:42 Oxygen Delivery Method Room Air 01/27/25 14:42 BMI result Body Mass Index 26.5 Const Other: General: Comfortable CVS: RRR Respiratory: clear to auscultation bilaterally. Good respiratory effort Skin: Erythematous spots on cheeks. MSK: Slight synovial thickening bilateral 2nd MCPs. Slight ulnar deviation of bilateral MCPs. Heberden nodes present. Able to limited radiology technician my hands. She has Dupuytren's contractures mild in bilateral hands. Normal range of motion of shoulders. External rotation of bilateral hips is limited due to pain. Mild synovitis right knee. Bilateral knee tenderness. Knee flexion 110 degrees bilaterally. No MTP tenderness. Office Procedures AMB Joint Injection/Aspiration Joint Injection/Aspiration Details: Bilateral knee joints Prep: site was prepped using aseptic technique Injected into each joint: 40 mg of, Kenalog, with 1 mL of and 1% plain lidocaine Procedure: Informed verbal consent was obtained. The patient tolerated the procedure well. Postprocedure protocol was discussed with patient. Coding 81520 - Bilateral Large Joint Procedure code (CPT) selection complete AMB Joint Injection/Aspiration Coding 01030 - Bilateral Large Joint Procedure code (CPT) selection complete Office Meds lidocaine (PF) 10 mg/mL (1 %) injection solution Performing Provider: Enoch Stephens MD Performing Location: [facility] Administered by: Tal Scott RN on 01/27/25 15:26 Dose Route Admin Location Dispensed Lot Number Expiration Date [facility] Slab Conditioner Supervisor 10 mg Infiltration 2 mL [id number] 11/28/26 96791-564-10 [employer] Total Dispensed Waste 2 mL 50 % Kenalog 40 mg/mL suspension for injection Performing Provider: Enoch Stephens MD Performing Location: [facility] Administered by: Tal Scott RN on 01/27/25 15:26 Dose Route Admin Location Dispensed Lot Number Expiration Date [facility] Slab Conditioner Supervisor 40 mg intra-articular 1 mL [id number] 05/30/26 6450-0331-01 [facility] Total Dispensed Waste 1 mL 0 % lidocaine (PF) 10 mg/mL (1 %) injection solution Performing Provider: Enoch Stephens MD Performing Location: [facility] Administered by: Tal Scott RN on 01/27/25 15:26 Dose Route Admin Location Dispensed Lot Number Expiration Date [facility] Slab Conditioner Supervisor 10 mg Infiltration 2 mL [id number] 11/28/26 23948-783-02 [employer] Total Dispensed Waste 2 mL 50 % Kenalog 40 mg/mL suspension for injection Performing Provider: Enoch Stephens MD Performing Location: [facility] Administered by: Tal Scott RN on 01/27/25 15:26 Dose Route Admin Location Dispensed Lot Number Expiration Date [employer] Slab Conditioner Supervisor 40 mg intra-articular 1 mL [id number] 05/30/26 5374-7069-79 [employer]KE[employer]SELL Total Dispensed Waste 1 mL 0 % Assessment & Plan Assessment & Plan (1) Rheumatoid arthritis: Comment: Inflammatory arthritis has improved on MTX. AST mildly elevated. She has persistent bilateral knee stiffness (x-rays without OA) likely due to RA activity. I will treat bilateral knee stiffness with intra-articular cortisone injections and optimize methotrexate dose if transaminitis resolves. Rheumatology history: Seronegative inflammatory arthritis with Raynaud's syndrome. Responsive to low-dose prednisone 10 mg daily. MTX 08/2024- Code(s): M06.9 - Rheumatoid arthritis, unspecified Category: Medical Qualifiers: Rheumatoid arthritis location: multiple sites Rheumatoid factor presence: unspecified presence Qualified Code(s): M06.9 - Rheumatoid arthritis, unspecified Plan: Patient received bilateral knee cortisone injections LFTs ordered Continue methotrexate 12.5 mg once weekly. If AST normalizes, we will increase methotrexate to 15 mg once weekly. If LFTs remain elevated, I will then reduce methotrexate dose to 10 mg once weekly and add hydroxychloroquine. Continue leucovorin 5 mg once weekly the day after you take methotrexate Return to clinic in 3 months (2) Osteoporosis: Comment: Without fragility fracture. Treatment naive. Bone density August 2024 reveals lowest T-score of left total hip-3.0, left femoral neck -2.9, lumbar spine -2.2. Code(s): M81.0 - Age-related osteoporosis without current pathological fracture Category: Medical Qualifiers: Osteoporosis type: age-related Presence of current pathological fracture: without current pathological fracture Qualified Code(s): M81.0 - Age-related osteoporosis without current pathological fracture Plan: I will address next visit (3) Raynaud disease without gangrene: Comment: Conservatively managed Code(s): I73.00 - Raynaud's syndrome without gangrene Category: Medical Plan: Continue conservative management (4) Hypercalcemia: Comment: On labs. She has discontinued calcium supplement 1200 mg daily Code(s): E83.52 - Hypercalcemia Category: Medical Plan: She continues to take multivitamin, which contains calcium Information on calcium rich foods given to patient for knowledge that she may be receiving sufficient calcium from her diet I will repeat calcium level this visit Orders: Orders AMB Joint Injection/Aspiration Today M06.9 - Rheumatoid arthritis, unspecified Calcium Today E83.52 - Hypercalcemia Albumin Level Today E83.52 - Hypercalcemia AMB Joint Injection/Aspiration Today M06.9 - Rheumatoid arthritis, unspecified Coding Level of Care Code Est Pt Level 4 (21004) Complex EM visit Add On G2211 Diagnoses Rheumatoid arthritis involving multiple sites, unspecified whether rheumatoid factor present M06.9 Rheumatoid arthritis location: multiple sites Rheumatoid factor presence: unspecified presence Age-related osteoporosis without current pathological fracture M81.0 Osteoporosis type: age-related Presence of current pathological fracture: without current pathological fracture Raynaud disease without gangrene I73.00 Hypercalcemia E83.52 CPT Codes Coding - 76028 - Bilateral Large Joint: 59992 - Bilateral Large Joint ([id number]) Coding - 99720 - Bilateral Large Joint: 14373 - Bilateral Large Joint ([id number])
[2025-01-27 14:42] VITALS: BP 108/60; PULSE 72; O2SAT 98; BMI 26.5
--- OUTSIDE RECORDS SUMMARY | 2025-01-27 15:10 | XMS_ITS | Clinical Summary ---
Author Organization [facility] Address [address] [place] [address] Care Team Providers Care Package Liner Name Role Phone Bassem Portillo MD Primary Care Provider [phone] Allergies Active Allergy Reactions Criticality Noted Date [...] 76 02/25/2024 10:10 AM EDT Temperature 36.1 C (97 F) 02/25/2024 10:10 AM EDT Respiratory Rate 16 [...] 5 season) 2024 05/23/2021 Influenza Vaccine (#1) 2025 2, 05/24/2008, 06/11/2007 Hepatitis B Vaccines Aged Out No long er eligible based on patient's age to complete this topic RSV Ped < 20 months Aged Out No longe r eligible based on patient's age to complete this topic Care Teams Package Liner Relationship Specialty Start Date End Date Bassem Portillo MD [address] [facility] [address] PCP - General Internal Medicine 02/19/23
== END 2025-01-27 15:33 | disposition home or self-care (01) ==
LOC: HO.RHES 14:28
PROVIDERS: PCP Internal Medicine; Visit Provider Internal Medicine Rheumatology
DX: M06.09 Rheumatoid arthritis without rheumatoid factor, multiple sites (principal); M81.0 Age-related osteoporosis without current pathological fracture; I73.00 Raynaud's syndrome without gangrene; E83.52 Hypercalcemia
CPT/HCPCS: 20610; 99214

== ENCOUNTER 2025-03-02 09:11 | Outpatient (REF) | payer MEDICARE, SELFPAY ==
--- OUTSIDE RECORDS SUMMARY | 2018-02-05 20:00 | XMS_ITS | Continuity of Care Document ---
Author Organization [facility] Address [address] [place] [address] Phone Care Team Providers Care Manager Business Name Role Phone RCM, Rendering Unavailable Unavailable Allergies, Adverse Reactions, Alerts Substance Reaction Status Criticality carbamazepine Active No Information cephalexin Active No Information NSAIDS (Non-Steroidal Anti-Inflammatory Drug) Active No Information WARNIN allergy(ies) could not be collected because the type is not supported. Please contact the source practice for further details. Advance Directives Directive Yes / No Effective Date File Name No Information Encounters Encounter Description Practice Location Reason(s) For Visit Diagnoses Date Provider Providers Copied on Encounter [facility], [address] [place], [place], [id number] , [place] tel: [phone] [facility] Location Multiple sclerosisAnatomical narrow angle, bilateralOther localized visual field defect, bilateralAge-related nuclear cataract, bilateral Jan- 9201 8 RCM Rendering . [facility] [place], [address], [place]. tel: [phone] [facility], [facility] [place], [place], [id number] , [place] tel: [phone] [facility] Location Multiple sclerosisAnatomical narrow angle, bilateralOther localized visual field defect, bilateral 0201 8 RCM Rendering . [facility] [place], [address], [place]. tel: [phone] [facility], [facility] [place], [place], [id number] , [place] tel: [phone] [facility] Location Other localized visual field defect, bilateralAge-related nuclear cataract, bilateralMultiple sclerosisAnatomical narrow angle, bilateral 0-201 8 RCM Rendering . [address] [place] [address], [address], . tel: [phone] Family History Family Member Type Diagnosis Age At Onset Problem (finding) Fhx of cataract Problem (finding) Fhx of cardiovascular d isease Problem (finding) Fhx of diabetes mellitu s Problem (finding) Fhx of glaucoma Problem (finding) Fhx of cancer Problem (finding) Fhx of degenerative dis order of macula Payers Payer name Insurance type Covered libertarian ID Authoriza tion(s) No Information Social History Type Description Quantity Date Captured Comments Alcohol Use Details Unknown Caffeine Use Details Unknown Tobacco Use Status Never smoker (Never Smoked) Smoking Status Never smoker (Never Smoked) Non-Smoking Tobacco Use Details : No Details Available : No Details Available Sex Female Vital Signs Date / Time: Height Weight BMI Pulse Rate Blood Pressure Temperature Respiratory Rate Body Surface Area Head Circumference Head Circ. Percentile Wt./Travis. Percentile BMI percentile Pulse Ox Inhaled Ox 10:35 AM 120.00 lbs Chief Complaint And Reason For Visit No Information Reason For Referral Reason For Referral No Information History Of Present Illness Encounter Date Complaint History Of Prese nt Illness No Information Functional Status Date Functional Assessmen t No Information Instructions Date Instruction Additional Infor ashly Impression/Plan Related to Patie nt has multiple sclerosis.\nNo Meds currently; normal HVF OU today \nOphthalmic Migraines w/ Aura type symptoms Impression/Plan Related to Non i mpactful Impression/Plan Related to with Hx of MS, \nOD Inferior disc cupping and superior nasal visual field defect.\nOS superior temporal disc pallor and corresponding inferior nasal defect.\n Impression/Plan Related to [place] revealed narrow angles without signs of glaucoma. Impression/Plan Related to with Hx of MS, \nOD Inferior disc cupping and superior nasal visual field defect.\nOS superior temporal disc pallor and corresponding inferior nasal defect.\n Impression/Plan Related to [place] Phigital revealed narrow angles without signs of glaucoma. Impression/Plan Related to Patie nt has multiple sclerosis.\nNo Meds currently; normal HVF OU today \nOphthalmic Migraines w/ Aura type symptoms Impression/Plan Related to Non i mpactful Impression/Plan Related to Hypos ensitivity Impression/Plan Related to Patie nt has multiple sclerosis.\nNo Meds currently; normal HVF OU today \nOphthalmic Migraines w/ Aura type symptoms Impression/Plan [facility] revealed narrow angles without signs of glaucoma. Assessments Type Assessment Date No Information Patient Care Teams Name Effective Dates (start - stop) Status Members No Information
--- OUTSIDE RECORDS SUMMARY | 2025-03-02 10:05 | XMS_ITS | Clinical Summary ---
Author Organization [facility] Address [address] [place] [phone] Phone Care Team Providers Care Office Analyst Name Role Phone Bassem Portillo MD Primary Care Provider [phone] Allergies Active Allergy Reactions Criticality Noted Date Comments Ampicillin-Sulbactam Swelling 11/22/2021 Carbamazepine Hives 11/22/2021 Cephalexin Rash Low 11/22/2021 Clonazepam Hives 11/22/2021 Naproxen Anaphylaxis High 11/22/2021 Nsaids (Non-Steroidal Anti-I [...] time each day. 90 tablet 08/17/2024 Active simvastatin (ZOCOR) 40 mg tablet Take 1 tablet (40 mg total) by mouth at bedtime. 90 tablet 08/17/2024 Active valACYclovir (VALTREX) 1 gram tablet Take 1 tablet (1,000 mg total) by mouth 1 (one) time each day. 90 tablet 08/17/2024 Active methotrexate 2.5 mg tablet Take 1 tablet (2.5 mg total) by mouth 1 (one) time per week 6 Tablets once a week 10/21/2024 Active baclofen (LIORESAL) 10 mg tablet Take 1 tablet (10 mg total) by mouth 3 (three) times a day. 270 tablet 12/15/2024 Active gabapentin (NEURONTIN) 100 mg capsule Take 1 capsule (100 mg total) by mouth at bedtime. 90 capsule 12/15/2024 Active leucovorin 5 mg tablet Take 1 tablet (5 mg total) by mouth 1 (one) time each day 12/21/2024 Active venlafaxine XR (EFFEXOR-XR) 150 mg 24 hr capsule Take 1 capsule (150 mg total) by mouth 1 (one) time each day. Take with food. 90 each 1 01/18/2025 Active Active Problems Problem Noted Date Diagnosed Date Malignant neoplasm of ovary (CMS/HCC V24, CMS/HC C V28) 01/19/2025 Overview (01/19/2025): followed by Dr Mendiola Inflammatory arthritis 01/18/2025 Constipation 09/04/2023 Dysthymia 09/04/2023 Eczema 09/04/2023 Glucose [...] things. 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 She had physical therapy years ago for MS related weakness. No recent PT, injections, acupuncture. She does use Tylenol for her pain, cannot take NSAIDs due to anaphylactic reaction in the past. At times her pain can get up to a 4-6/10. Patient had a lumbar spine MRI 03/12/2023 at [facility] that shows multilevel degenerative changes and left levoscoliosis centered at L2-3, including left L5-S1 foraminal narrowing. I reviewed MRI images in detail with the patient on the computer. Dr. Morris reviewed her images today as well. Ms. Cruz is experiencing recent heat in the left [...] Encounters Date Type Department Care Team Description 01/18/2025 9:45 AM EDT Office Visit [facility] [address] [place] [address] Fidel Bryan PA Dysthymia (Primary Dx); Mixed hyperlipidemia; Peripheral edema from Last 3 Months Immunizations Name Administration [...] Medical History Date Comments MS (multiple sclerosis) ([facility] V24, [facility] V28) DX:MS (multiple sclerosis) ( [facility]) Pure hypercholesterolemia DX:Pur e hypercholesterolemia Osteoporosis DX:Osteoporosis Cancer ([facility] V24, [facility] V28) DX:Cancer (HCC) Mixed hyperlipidemia DX:Mixed hy perlipidemia Multiple sclerosis ([facility] V24, [facility] V28) 19 98 DX:Multiple sclerosis (HCC) Ovarian cancer ([facility] V24, [facility] V28) DX:Ovarian cancer (HCC) Osteoporosis DX:Osteoporosis Family [...] drink = 0.6 oz pur e alcohol) Housing Instability Answer Date Recorde d Are you worried that in the next 2 months you may not have stable housing? No 02/23/2025 Food Access & Nutrition Answer Date Rec orded Do you have access to a vari ety of food including fruits and vegetables? Yes 02/23/2025 Access to Healthcare Answer Date Record ed Within the last 3 months, ho w many times did you visit the emergency department for your medical care? 0 02/23/2025 Health Literacy Answer Date Recorded How often do you need to hav e someone help you when you read instructions, pamphlets, or other written material from your doctor or pharmacy? Never 02/23/2025 Caregiver: How often do you need to have someone help you when you read instructions, pamphlets, or other written material from your doctor or pharmacy? Not on file 02/23/2025 Financial Risk Answer Date Recorded How hard is it for you to pa y for the very basics like food, housing, medical care, and air conditioning / heating? Not asked 02/23/2025 Transportation Answer Date Recorded Has the lack of transportati on kept you from meetings, work, or from getting things needed for daily living? No Has the lack of transportati on kept you from medical appointments or from getting medications? No 02/23/2025 Social Isolation Answer Date Recorded How often do you feel lonely or isolated from th ose around you? Never 02/23/2025 Food Risk Answer Date Recorded Within the past 12 months we worried whether our food would run out before we got money to buy more. Never true 02/23/2025 Within the past 12 months th e food we bought just didn't last and we didn't have money to get more. Never true 02/23/2025 Dependent Care Answer Date Recorded Do you need help finding or paying for care for your loved ones. For example, teacher early childhood development or elderly care for an older adult? No 02/23/2025 Education Answer Date Recorded Do you think completing more education or training, like finishing a GED, going to college, or learning a trade, would be helpful for you? N/A 02/23/2025 Employment and Income Answer Date Recor ded During the last four weeks, have you been actively looking for work? No 02/23/2025 Living Situation Answer Date Recorded What is your living situation? 0 02/23/2025 Comments No Sex and Gender Information Value [...] Sign Reading Time Taken Comments Blood Pressure 122/74 01/18/2025 9:35 AM EDT Pulse 66 01/18/2025 9:35 AM EDT Temperature 36 C (96.8 F) 05/06/2024 10:35 AM EST Respiratory Rate 16 01/18/2025 9:35 AM EDT Oxygen Saturation 98% 11/03/2024 9:44 AM EDT Inhaled Oxygen Concentration - - Weight 59 kg (130 lb) 01/18/2025 9:35 AM EDT Height 149.9 cm (4' 11 ) 11/03/2024 9:44 AM EDT Body Mass Index 26.26 11/03/2024 9:44 AM EDT Plan of Treatment Upcoming Encounters Date Type Department Care Team (Late st Contact Info) Description 03/02/2025 11:00 AM EDT Office Visit Internal Medicine - [facility] [address] [place] [address] Fidel Bryan PA [address] [place] [address] 11/02/2025 1:00 PM EDT Office Visit [facility] [address] [facility] [address] [place] [address] Raymundo Tabor MD [address] [place] [phone] Health Maintenance Due Date Last Done Comments DTaP,Tdap,and Td Vaccines (1 - Tdap) 12/27/1966 Zoster Vaccines (1 of 2) 12/27/1966 Pneumococcal Vaccine: 50+ Years (1 of 1 - PCV) 12/27/1997 Hepatitis C Screening 06/10/2022 Medicare Annual Wellness Visit 06/10/2022 RSV Immunization Adult Patients (1 - 1-dose 75+ series) 12/27/2022 COVID-19 Vaccine ( - season) 2025 05/23/2021, 09/09/2020, 08/12/2020 Influenza Vaccine (#1) 2025 3, 03/11/2023, 03/14/2022, Additional history exists Social Influencers of Health Screening 02/23/2026 02/23/2025 Falls Risk Assessment 03/02/2026 03/02/2025 Cholesterol Screening (Lipid Panel) 01/18/2030 01/18/2025, 04/07/2024 Osteoporosis Screening (Bone Density Screening) 05/02/2033 05/02/2023 Breast Cancer Screening Discontinued 09/05/19 25, 05/18/2024, 05/09/2023 Depression Screening Completed 02/23/2025 HIB Vaccines Aged Out No longer eligi [...] Procedure Name Priority Date/Time Associated Diagnosis Comments LIPID PANEL WITH REFLEX TO DIRECT LDL Routine 01/18/2025 10:26 AM EDT Mixed hyperlipidemia COMPREHENSIVE METABOLIC PANEL Routine 01/18/2025 10:26 AM EDT Mixed hyperlipidemia EXTERNAL MAMMOGRAM REPORT 09/04/2024 DXA BONE DENSITY STUDY 1+ SITS AXIAL SKEL Routine 05/02/2023 3:20 PM EDT Encounter for screening for osteoporosis from Last 3 Months or Most Recently Relevant to Health Maintenance Results * (ABNORMAL) Lipid panel with reflex to direct LDL (01/18/2025 10:26 AM EDT) Cholesterol 180 0 - 200 mg/dL LAB CHEMISTRY METHOD 01/18/2025 7:15 PM EDT [facility] Triglycerides 159(H) 0 - 150 mg/dL LAB CHEMISTRY METHOD 01/18/2025 7:15 PM EDT [facility] HDL 59 >=40 mg/dL LAB CHEMISTRY METHOD 01/18/2025 7:15 PM EDT [facility] LDL Calculated 89 0 - 100 mg/dL LAB CHEMISTRY METHOD 01/18/2025 7:15 PM EDT [facility] VLDL Cholesterol Twin 31.8 mg/dL LAB CHEMISTRY METHOD 01/18/2025 7:15 PM EDT [facility] Non HDL Chol. (LDL+VLDL) 121 <145 mg/dL LAB CHEMISTRY METHOD 01/18/2025 7:15 PM EDT [facility] Chol/HDL Ratio 3.1 0.0 - 4.4 LAB CHEMISTRY METHOD 01/18/2025 7:15 PM EDT [facility] Blood Venous blood specimen / Unknown Venipuncture / Unknown 01/18/2025 10:26 AM EDT 01/18/2025 10:26 AM EDT Fidel MORENO LAB BLOOD ORDERABLES Fi nal Result [facility] [address] [place] [address], * Comprehensive metabolic panel (01/18/2025 10:26 AM EDT) Pathologist [facility] Sodium 142 133 - 145 mmol/L LAB CHEMISTRY METHOD 01/18/2025 7:15 PM EDT [facility] Potassium 4.3 3.5 - 5.5 mmol/L LAB CHEMISTRY METHOD 01/18/2025 7:15 PM EDT [facility] Chloride 108 96 - 110 mmol/L LAB CHEMISTRY METHOD 01/18/2025 7:15 PM [facility] CO2 28 21 - 32 mmol/L LAB CHEMISTRY METHOD 01/18/2025 7:15 PM [facility] Anion Gap 6 3 - 11 LAB CHEMISTRY METHOD 01/18/2025 7:15 PM [facility] Glucose 76 70 - 100 mg/dL LAB CHEMISTRY METHOD 01/18/2025 7:15 PM [facility] BUN 8 5 - 25 mg/dL LAB CHEMISTRY METHOD 01/18/2025 7:15 PM [facility] Creatinine 0.75 0.50 - 1.10 mg/dL LAB CHEMISTRY METHOD 01/18/2025 7:15 PM [facility] eGFR 82 >=60 mL/min/1. 73m2 LAB CHEMISTRY METHOD 01/18/2025 7:15 PM [facility] Comment:Calculation based on the Chronic Kidney Disease Epidemiology Collaboration (CKD-EPI) equation refit without adjustment for race. BUN/Creatinine Ratio 10.7 LAB CHEMISTRY METHOD 01/18/2025 7:15 PM [facility] Calcium 9.4 8.5 - 10.5 mg/dL LAB CHEMISTRY METHOD 01/18/2025 7:15 PM [facility] AST (SGOT) 19 10 - 42 unit/L LAB CHEMISTRY METHOD 01/18/2025 7:15 PM [facility] ALT (SGPT) 19 10 - 60 unit/L LAB CHEMISTRY METHOD 01/18/2025 7:15 PM [facility] Alkaline Phosphatase 57 42 - 121 unit/L LAB CHEMISTRY METHOD 01/18/2025 7:15 PM [facility] Total Protein 6.2 6.0 - 8.0 g/dL LAB CHEMISTRY METHOD 01/18/2025 7:15 PM [facility] Albumin 3.6 3.2 - 5.0 g/dL LAB CHEMISTRY METHOD 01/18/2025 7:15 PM EDT [facility] Total Bilirubin 0.4 0.0 - 1.4 mg/dL LAB CHEMISTRY METHOD 01/18/2025 7:15 PM EDT [facility] Blood Venous blood specimen / Unknown Venipuncture / Unknown 01/18/2025 10:26 AM EDT 01/18/2025 10:26 AM EDT Fidel MORENO LAB BLOOD ORDERABLES Fi nal Result [facility] [address] [place] [address], * External Mammogram Report (09/04/2024) Anatomical Region Laterality Modality Mammography Provider [facility] IMG BI PROCEDURES Final Result * DXA BONE DENSITY STUDY 1+ SITS AXIAL SKEL (05/02/2023 3:20 PM EDT) Anatomical Region Laterality [...] on the World Health Organization criteria, Eva Cruz should be classified as having osteoporosis. The [facility] Department of Internal Medicine recommends using National [...] on the World Health Organization criteria, Eva Cruz shouldbe classified as having osteoporosis. The [facility] Department of Internal Medicine recommendsusing National Osteoporosis [...] FRAX. Bassem Portillo MD IMG DXA PROCEDURES Final Result from Last 3 Months or Most Recently Relevant to Health Maintenance Insurance [employer] MED[employer]ARE [employer]VANTAGE Care Teams Office Analyst Relationship Specialty Start Date End Date Bassem Poritllo MD [address] [place] [phone] PCP - General Internal Medicine 10/30/24
--- OUTSIDE RECORDS SUMMARY | 2025-03-02 10:06 | XMS_ITS | Clinical Summary ---
Author Organization [facility] Address [address] [place] [address] Care Team Providers Care Helper Electrical Name Role Phone Bassem Portillo MD Primary Care Provider [phone] Allergies Active Allergy Reactions Criticality Noted Date [...] 75+ series) 12/27/2022 COVID-19 Vaccine (2 - 2024-2 6 season) 2025 05/23/2021 Influenza Vaccine (#1) 2025 2, 05/24/2008, 06/11/2007 Hepatitis B Vaccines Aged Out No long er eligible based on patient's age to complete this topic RSV Ped < 20 months Aged Out No longe r eligible based on patient's age to complete this topic Care Teams Helper Electrical Relationship Specialty Start Date End Date Bassem Portillo MD [address] [place] [address] PCP - General Internal Medicine 02/19/23
[2025-03-02 13:26] LABS: Alanine Aminotransferase 25 U/L (0-31); Albumin Level 4.0 g/dL (3.5-5.0); Aspartate Amino Transferase 29 U/L (5-31); Calcium 9.3 mg/dL (8.4-10.2)
== END 2025-03-02 09:12 | disposition home or self-care (01) ==
LOC: HO.HKASLDS 09:11
PROVIDERS: Visit Provider Internal Medicine Rheumatology
DX: R74.01 Elevation of levels of liver transaminase levels (principal); E83.52 Hypercalcemia
CPT/HCPCS: 36415; 82040; 82310; 84450; 84460

== ENCOUNTER 2025-05-18 09:19 | Outpatient (REF) | payer MEDICARE, SELFPAY ==
[2025-05-18 13:46] LABS: MANUAL DIFF FLAG NO
[2025-05-18 14:12] LABS: Alanine Aminotransferase 30 U/L (0-31); Aspartate Amino Transferase 42 U/L (5-31); Estimated Glomerular Filt Rate > 60
[2025-05-18 14:30] LABS: Hematocrit 40.7 % (37.0-47.0); Hemoglobin 12.8 g/dl (12.0-16.0); Imm Gran Abs Auto 0.01 X10*3/uL (0.00-0.03); Imm Gran Pct Auto 0.3 % (0.0-0.4); Lymphocytes Absolute Auto 1.2 X10*3/uL (1.2-4.9); Mean Corpuscular HGB Conc 31.4 g/dl (31.0-35.0); Mean Corpuscular Hemoglobin 29.8 pg (27.0-33.0); Mean Corpuscular Volume 94.9 fL (80.0-98.0); NRBC Abs Auto 0.000 X10*3/uL (0.0-0.012); NRBC Pct Auto 0.0 /100WBC (0.0-0.2); Platelet Count 299 X10*3/uL (160-400); Red Blood Count 4.29 X10*6/uL (4.20-5.50); White Blood Count 3.9 X10*3/uL (4.8-10.8)
== END 2025-05-18 09:20 | disposition home or self-care (01) ==
LOC: HO.HKASLDS 09:19
PROVIDERS: PCP Internal Medicine; Visit Provider Internal Medicine Rheumatology
DX: Z79.899 Other long term (current) drug therapy (principal)
CPT/HCPCS: 36415; 82565; 84450; 84460; 85025; 85652; 86140

== ENCOUNTER 2025-06-01 09:09 | Outpatient (AMB) | payer MEDICARE, SELFPAY ==
[2025-06-01 09:12] VITALS: BP 120/70; PULSE 71; O2SAT 99; BMI 26.4
--- NOTE | 2025-06-01 09:12 | MHC.OFFVIS ---
Vital Signs 06/01/25 09:12 Height 4 ft 10.5 in Weight 128 lb 8.472 oz BMI 26.4 BP 120/70 Blood Pressure Location Rt brachial Position Sitting Pulse 71 Pulse Source Pulse Oximeter Pulse Oximetry (%) 99 Oxygen Delivery Method Room Air Intake Visit Reasons: 3 months Intake Note: Patient presents for an osteoporosis follow up. Accompanied by: Self / Same As Patient Allergies cephalexin (From Keflex) Allergy (Unknown, Verified 06/01/25 09:12) Unknown clonazepam (From Klonopin) Allergy (Unknown, Verified 06/01/25 09:12) Unknown ampicillin (From Unasyn) Adverse Reaction (Unknown, Verified 06/01/25 09:12) Unknown NSAIDS (Non-Steroidal Anti-Inflamma Adverse Reaction (Unknown, Verified 06/01/25 09:12) Anaphylaxis sulbactam (From Unasyn) Adverse Reaction (Unknown, Verified 06/01/25 09:12) Unknown HPI HPI 3 months: Details: Hx dormant MS. She has dizziness. Recent brain MRI did not show activity from MS. Joints feel well. she has stiffness in knees that did not change with cortisone injection. +extremely fatigued. Leucovorin helps. She lost hair. Hair loss has reduced but still persistent. PFSH Family History Father COPD (chronic obstructive pulmonary disease) Asthma Mother COPD (chronic obstructive pulmonary disease) Stroke Rheumatoid arthritis Social History Comment: no more than 3 a week, but often does not drink Patient Tobacco Use Status: Never used Tobacco Physical Exam Vital Signs: Last Vital Signs Pulse 71 06/01/25 09:12 BP 120/70 06/01/25 09:12 Pulse Ox 99 06/01/25 09:12 Oxygen Delivery Method Room Air 06/01/25 09:12 BMI result Body Mass Index 26.4 Const Other: General: Comfortable CVS: RRR Respiratory: clear to auscultation bilaterally. Good respiratory effort Skin: Erythematous spots on cheeks. MSK: Resolution of chronic synovial thickening. Tender left 2nd, 3rd and 5th MCP. Slight ulnar deviation of bilateral MCPs. Heberden nodes present. 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 She has Dupuytren's contractures mild in bilateral hands. Normal range of motion of shoulders. External rotation of bilateral hips is limited due to pain. Bilateral knee tenderness. Knee flexion 110 degrees bilaterally. No MTP tenderness. Assessment & Plan Assessment & Plan (1) Rheumatoid arthritis: Comment: Inflammatory arthritis has improved on MTX. AST mildly elevated and mild leukopenia on recent labs. She has dizziness and has experienced hair loss since being on methotrexate. We discussed next steps with discontinuing methotrexate an alternative hydroxychloroquine since her inflammatory arthritis is better controlled. We discussed side effects, benefits and drug monitoring of hydroxychloroquine. After lab results are back, I will send prescription. Rheumatology history: Seronegative inflammatory arthritis with Raynaud's syndrome. Responsive to low-dose prednisone 10 mg daily. MTX 08/2024-elevated AST. Hx of dormant MS. Bilateral knee stiffness did not improve with intra-articular cortisone injections (x-rays normal representing likely activity from RA). Code(s): M06.9 - Rheumatoid arthritis, unspecified Category: Medical Qualifiers: Rheumatoid arthritis location: multiple sites Rheumatoid factor presence: unspecified presence Qualified Code(s): M06.9 - Rheumatoid arthritis, unspecified Plan: LFTs, CBC and G6PD ordered Discontinue methotrexate leucovorin Information on hydroxychloroquine given to patient Return to clinic in 3 months (2) Osteoporosis: Comment: Without fragility fracture. Treatment naive. Bone density August 2024 reveals lowest T-score of left total hip-3.0, left femoral neck -2.9, lumbar spine -2.2. We discussed next steps with treatment with oral bisphosphonate. She has GERD triggered with eating certain foods at night. Code(s): M81.0 - Age-related osteoporosis without current pathological fracture Category: Medical Qualifiers: Osteoporosis type: age-related Presence of current pathological fracture: without current pathological fracture Qualified Code(s): M81.0 - Age-related osteoporosis without current pathological fracture Plan: Information on alendronate given to patient I will start alendronate this visit She will continue vitamin-D supplement. Calcium supplement was held in the past due to hypercalcemia Return to clinic in 3 months Bone density due August 2026 (3) Raynaud disease without gangrene: Comment: Conservatively managed Code(s): I73.00 - Raynaud's syndrome without gangrene Category: Medical Plan: Continue conservative management (4) Hypercalcemia: Comment: On labs. 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 Liver Panel Today M06.9 - Rheumatoid arthritis, unspecified, R74.01 - Elevation of levels of liver transaminase levels Albumin Level Today E83.52 - Hypercalcemia, M06.9 - Rheumatoid arthritis, unspecified, M81.0 - Age-related osteoporosis without current pathological fracture Hfzhtfp-0-Cuggblphd Dehydrogen Today Z79.899 - Other regional intermodal truck driver (current) drug therapy Vitamin D 25-OH Total Today E83.52 - Hypercalcemia, M06.9 - Rheumatoid arthritis, unspecified, M81.0 - Age-related osteoporosis without current pathological fracture Calcium Today E83.52 - Hypercalcemia, M06.9 - Rheumatoid arthritis, unspecified, M81.0 - Age-related osteoporosis without current pathological fracture Medications: New alendronate 70 mg PO QWEEK 12 tabs 4RF Coding Level of Care Code Est Pt Level 4 (58222) Complex visit Add On G2211 Diagnoses Rheumatoid arthritis involving multiple sites, unspecified whether rheumatoid factor present M06.9 Rheumatoid arthritis location: multiple sites Rheumatoid factor presence: unspecified presence Age-related osteoporosis without current pathological fracture M81.0 Osteoporosis type: age-related Presence of current pathological fracture: without current pathological fracture Raynaud disease without gangrene I73.00 Hypercalcemia E83.52
--- OUTSIDE RECORDS SUMMARY | 2025-06-01 09:38 | XMS_ITS | Clinical Summary ---
Author Organization [facility] Address [address] [place] [address] Care Team Providers Care Mortgage Protection Sales Name Role Phone Bassem Portillo MD Primary Care Provider [phone] Allergies Active Allergy Reactions Criticality Noted Date [...] age to complete this topic Care Teams Mortgage Protection Sales Relationship Specialty Start Date End Date Bassem Portillo MD [address] [facility] [place] [address] PCP - General Internal Medicine 02/19/23
--- OUTSIDE RECORDS SUMMARY | 2025-06-01 09:38 | XMS_ITS | Clinical Summary ---
Author Organization [facility] Address [address] [place] [phone] Phone Care Team Providers Care Negotiator Sales Name Role Phone Bassem Portillo MD Primary Care Provider [phone] Allergies Active Allergy Reactions Criticality Noted Date [...] time each day. 90 tablet 08/17/2024 Active baclofen (LIORESAL) 10 mg tablet Take 1 tablet (10 mg total) by mouth 3 (three) times a day. 270 tablet 12/15/2024 Active gabapentin (NEURONTIN) 100 mg capsule TAKE 1 CAPSULE AT BEDTIME 90 capsule 1 03/02/2025 Active venlafaxine XR (EFFEXOR-XR) 75 mg 24 hr capsule Take 1 capsule (75 mg total) by mouth 1 (one) time each day. Take with food. 90 each 1 03/02/2025 Active leucovorin 5 mg tablet Take 2 tablets (10 mg total) by mouth 1 (one) time per week 03/02/2025 Active methotrexate 2.5 mg tablet Take 1 tablet (2.5 mg total) by mouth 1 (one) time per week 4 Tablets once a week 03/02/2025 Active meclizine (ANTIVERT) 12.5 mg tablet Take 1 tablet (12.5 mg total) by mouth 3 (three) times a day if needed for dizziness. 30 tablet 03/02/2025 Active Active Problems Problem Noted Date Diagnosed [...] things. 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 She had physical therapy years ago for MS related weakness. No recent PT, injections, acupuncture. She does use Tylenol for her pain, cannot take NSAIDs due to anaphylactic reaction in the past. At times her pain can get up to a 4-6/10. Patient had a lumbar spine MRI 03/12/2023 at [facility] that shows multilevel degenerative changes and [...] Encounters Date Type Department Care Team Description 05/20/2025 Telephone Internal Medicine [facility] [address] [place] [phone] Bassem Portillo MD 04/28/2025 9:11 AM EDT - 04/28/2025 11:59 PM EDT Hospital Encounter [facility] MRI [address] [place] [phone] Multiple sclerosis Discharge Disposition: Home or Self Care 04/02/2025 3:30 PM EDT Office Visit [facility] [address] [facility] [address] [place] [phone] Elsa Manley PA Multiple sclerosis (Primary Dx) 03/31/2025 Telephone [facility] [address] [phone] Elsa Manley PA 03/02/2025 11:00 AM EDT Office Visit Internal Medicine - [facility] [address] [place] [phone] Fidel Bryan PA Dysthymia (Primary Dx); Blurry vision from Last 3 Months Immunizations Immunization Administration Dates Next Due Influenza trivalent, 0.5mL ( Fluzone High-dose) 65yo and older 03/29/2025,03/14/2022 Influenza trivalent, with pr eservative (Fluzone; Afluria) 6mo and older 05/24/2008,06/11/2007 Influenza, Unspecified 03/11/2023,03/01/2022 Moderna SARS-CoV-2 COVID-19, mRNA, [...] Medical History Date Comments MS (multiple sclerosis) DX:MS (m ultiple sclerosis) (HCC) Pure hypercholesterolemia DX:Pur e hypercholesterolemia Osteoporosis DX:Osteoporosis Cancer ([facility]/HCC V24, [facility] V28) DX:Cancer (HCC) Mixed hyperlipidemia DX:Mixed hy perlipidemia Multiple sclerosis 1997 DX:Multiple s clerosis (HCC) Ovarian cancer ([facility] V24, [facility] V28) DX:Ovarian cancer (HCC) Osteoporosis [...] care for your loved ones. For example, childcare director or elderly care for an older adult? [...] Date Recorded What is your living situation? Unrecognized valu e 02/23/2025 Comments No Sex and Gender Information [...] Sign Reading Time Taken Comments Blood Pressure 144/81 04/02/2025 3:39 PM EDT Pulse 81 04/02/2025 3:39 PM EDT Temperature 36.1 C (97 F) 04/02/2025 3:39 PM EDT Respiratory Rate 16 01/18/2025 9:35 AM EDT Oxygen Saturation 99% 04/02/2025 3:39 PM EDT Inhaled Oxygen Concentration - - Weight 57.6 kg (127 lb) 03/02/2025 10:53 AM EDT Height 149.9 cm (4' 11 ) 03/02/2025 10:53 AM EDT Body Mass Index 25.65 03/02/2025 10:53 AM EDT Plan of Treatment Upcoming Encounters Date Type Department Care Team (Late st Contact Info) Description 06/03/2025 1:30 PM EST Office Visit [facility] [address] [facility] [address] [place] [phone] Raymundo Tabor MD [address] [place] [address] 08/30/2025 11:00 AM EST [facility] [address] [place] [phone] Fidel Bryan PA [address] [place] [address] 11/02/2025 1:00 PM EDT Office Visit [facility] [address] [phone] Raymundo Tabor MD [address] [place] [address] Health Maintenance Due Date Last Done Comments DTaP,Tdap,and Td Vaccines (1 - Tdap) 12/27/1966 Zoster Vaccines (1 of 2) 12/27/1966 Pneumococcal Vaccine: 50+ Years (1 of 1 - PCV) 12/27/1997 Hepatitis C Screening 06/10/2022 Medicare Annual Wellness Visit 06/10/2022 RSV Immunization Adult Patients (1 - 1-dose 75+ series) 12/27/2022 COVID-19 Vaccine (5 - Mixed Product risk season) 2025 03/29/2025, 05/23/2021, 09/09/2020, Additional history exists Social Influencers of Health Screening 02/23/2026 02/23/2025 Falls Risk Assessment 03/02/2026 03/02/2025 Cholesterol Screening (Lipid Panel) 01/18/2030 01/18/2025, 04/07/2024 Osteoporosis Screening (Bone Density Screening) 05/02/2033 05/02/2023 Breast Cancer Screening Discontinued 09/05/19, 05/18/2024, 05/09/2023 Depression Screening Completed 02/23/2025 Influenza Vaccine Completed 03/29/2025, , 03/14/2022, Additional history exists HIB Vaccines Aged Out No longer eligi [...] Date/Time Associated Diagnosis Comments EXTERNAL CLINICAL LAB 05/19/2025 MR BRAIN WO CONTRAST Routine 04/28/2025 10:37 AM EDT Multiple sclerosis LIPID PANEL WITH REFLEX TO DIRECT LDL Routine 01/18/2025 10:26 AM EDT Mixed hyperlipidemia EXTERNAL MAMMOGRAM REPORT 09/04/2024 DXA BONE DENSITY STUDY 1+ SITS AXIAL SKEL Routine 05/02/2023 3:20 PM EDT Encounter for screening for osteoporosis from Last 3 Months or Most Recently Relevant to Health Maintenance Results * External clinical lab (05/19/2025) us Provider [facility] LAB BLOOD ORDERABLES Fin al Result * MR Brain wo Contrast (04/28/2025 10:37 AM EDT) Anatomical Region Laterality Modality Head and Neck Magnetic Resonan ce 04/30/2025 3:58 PM EDT Impressions 04/30/2025 4:42 PM EDT Stable exam compared to 2022. No new white matter lesions. -------- FINAL REPORT -------- Dictated By: DUGLAS FAIRBANKS Dictated Date: 04/30/2025 15:58 ET Assigned Physician: DUGLAS FAIRBANKS Reviewed and Electronically Signed By: DUGLAS FAIRBANKS Signed Date: 04/30/2025 16:42 ET Workstation ID: [id number] Transcribed By: Self Edit Transcribed Date: 04/30/2025 15:58 ET Narrative 04/30/2025 4:42 PM EDT PROCEDURE: Brain MRI INDICATION: Multiple sclerosis, demyelination TECHNIQUE: Multiplanar multisequence MRI of the brain without contrast COMPARISON: 03/12/2023 FINDINGS: No acute infarct, mass effect, or intracranial hemorrhage. Sella and foramen magnum are normal. Unchanged extensive confluent periventricular, patchy subcortical, and confluent deep white matter signal abnormality with involvement of the thalami and rosy. Ventricles are stable in size. No hydrocephalus. No abnormal intracranial susceptibility artifact or restricted diffusion. Major intracranial arterial flow voids are normal. Sinuses and mastoids are clear. Bilateral lens implants. Extracranial soft tissues and calvarium are within normal limits. Procedure Note Duglas Fairbanks MD - 04/30/2025 PROCEDURE: Brain MRI INDICATION: Multiple sclerosis, demyelination TECHNIQUE: Multiplanar multisequence MRI of the brain without contrast COMPARISON: 03/12/2023 FINDINGS: No acute infarct, mass effect, or intracranial hemorrhage. Sella and foramen magnum are normal. Unchanged extensive confluent periventricular, patchy subcortical, andconfluent deep white matter signal abnormality with involvement of thethalami and rosy. Ventricles are stable in size. No hydrocephalus. No abnormal intracranial susceptibility artifact or restricteddiffusion. Major intracranial arterial flow voids are normal. Sinuses and mastoids are clear. Bilateral lens implants. Extracranialsoft tissues and calvarium are within normal limits. IMPRESSION: Stable exam compared to 2022. No new white matter lesions. -------- FINAL REPORT -------- Dictated By: DUGLAS FAIRBANKS Dictated Date: 04/30/2025 15:58 ET Assigned Physician: DUGLAS FAIRBANKS Reviewed and Electronically Signed By: DUGLSA FAIRBANKS Signed Date: 04/30/2025 16:42 ET Workstation ID: [id number] Transcribed By: Self Edit Transcribed Date: 04/30/2025 15:58 ET Elsa MORENO IMG MRI PROCEDURES Final Res ult * (ABNORMAL) Lipid panel with reflex to direct LDL (01/18/2025 10:26 AM EDT) Cholesterol 180 0 - 200 mg/dL LAB CHEMISTRY METHOD 01/18/2025 7:15 PM EDT [facility] Triglycerides 159(H) 0 - 150 mg/dL LAB CHEMISTRY METHOD 01/18/2025 7:15 PM EDT [facility] HDL 59 >=40 mg/dL LAB CHEMISTRY METHOD 01/18/2025 7:15 PM EDT [facility] LDL Calculated 89 0 - 100 mg/dL LAB CHEMISTRY METHOD 01/18/2025 7:15 PM EDT [facility] VLDL Cholesterol Twin 31.8 mg/dL LAB CHEMISTRY METHOD 01/18/2025 7:15 PM EDT [facility] Non HDL Chol. (LDL+VLDL) 121 <145 mg/dL LAB CHEMISTRY METHOD 01/18/2025 7:15 PM EDT [facility] Chol/HDL Ratio 3.1 0.0 - 4.4 LAB CHEMISTRY METHOD 01/18/2025 7:15 PM EDT [facility] Blood Venous blood specimen / Unknown Venipuncture / Unknown 01/18/2025 10:26 AM EDT 01/18/2025 10:26 AM EDT Fidel MOR[facility] LAB BLOOD ORDERABLES Fi nal Result [facility] [address] [place] [address], [place] [phone] * External Mammogram Report (09/04/2024) Anatomical Region Laterality Modality Mammography Provider [facility] IMG BI PROCEDURES Final Result * DXA BONE DENSITY STUDY 1+ SITS AXIAL SKTATIANNA (05/02/2023 3:20 PM EDT) Anatomical Region Laterality [...] should be classified as having osteoporosis. [facility] Department of Internal Medicine recommends using [...] on the World Health Organization criteria, Eva Lozano Cruz shouldbe classified as having osteoporosis. [facility] Department of Internal Medicine recommendsusing National [...] Maintenance Insurance [employer] Care Teams Negotiator Sales Relationship Specialty Start Date End Date Bassem Portillo MD [address] [place] [address] PCP - General Internal Medicine 10/30/24
== END 2025-06-01 10:12 | disposition home or self-care (01) ==
LOC: HO.RHES 09:10
PROVIDERS: PCP Internal Medicine; Visit Provider Internal Medicine Rheumatology
DX: M06.9 Rheumatoid arthritis, unspecified (principal); M81.0 Age-related osteoporosis without current pathological fracture; I73.00 Raynaud's syndrome without gangrene; E83.52 Hypercalcemia
CPT/HCPCS: 99214; G2211

== ENCOUNTER 2025-06-01 09:09 | Outpatient (REF) | payer MEDICARE, SELFPAY ==
[2025-06-01 13:30] LABS: MANUAL DIFF FLAG NO
[2025-06-01 13:38] LABS: Hematocrit 40.8 % (37.0-47.0); Hemoglobin 12.9 g/dl (12.0-16.0); Imm Gran Abs Auto 0.02 X10*3/uL (0.00-0.03); Imm Gran Pct Auto 0.4 % (0.0-0.4); Lymphocytes Absolute Auto 1.5 X10*3/uL (1.2-4.9); Mean Corpuscular HGB Conc 31.6 g/dl (31.0-35.0); Mean Corpuscular Hemoglobin 29.5 pg (27.0-33.0); Mean Corpuscular Volume 93.4 fL (80.0-98.0); NRBC Abs Auto 0.000 X10*3/uL (0.0-0.012); NRBC Pct Auto 0.0 /100WBC (0.0-0.2); Platelet Count 324 X10*3/uL (160-400); Red Blood Count 4.37 X10*6/uL (4.20-5.50); White Blood Count 5.0 X10*3/uL (4.8-10.8)
[2025-06-01 14:03] LABS: Alanine Aminotransferase 26 U/L (0-31); Albumin Level 4.2 g/dL (3.5-5.0); Alkaline Phosphatase 59 U/L (39-117); Aspartate Amino Transferase 40 U/L (5-31); Calcium 9.5 mg/dL (8.4-10.2); Total Protein 6.6 g/dL (6.5-8.0)
[2025-06-06 18:14] LABS: Glucose-6-Phosphate Dehydrogen 17.3 U/g Hgb (7.0-20.5)
== END 2025-06-01 09:10 | disposition home or self-care (01) ==
LOC: HO.HKASLDS 09:09
PROVIDERS: PCP Internal Medicine; Visit Provider Internal Medicine Rheumatology
DX: M06.9 Rheumatoid arthritis, unspecified (principal); M81.0 Age-related osteoporosis without current pathological fracture; I73.00 Raynaud's syndrome without gangrene; E83.52 Hypercalcemia; Z79.899 Other long term (current) drug therapy
CPT/HCPCS: 36415; 80076; 82306; 82310; 82955; 85025; 99212